=== PATIENT | female | born 1960 | race Caucasian/White ===

== ENCOUNTER 2024-06-21 20:12 | Emergency (ER) | payer MEDICARE, SELFPAY ==
--- NOTE | ~2024-06-21 | XR_ITS ---
XR hand LT 2V Ordering provider: William Min MD History: . fall, pain/ SWELLING TO HAND, NEAR 5TH METACARPAL . Comparison: None. FINDINGS: BONES: No acute fracture or dislocation. Postoperative changes for removal of the trapezium bone. Sma ll residual bony fragment is seen. JOINT SPACES: Well maintained. SOFT TISSUES: Unremarkable. IMPRESSION: No acute osseous abnormality left hand. Postoperative changes in the trapezium bone. Reviewed, dictated and finalized at location A.
[2024-06-21 20:21] VITALS: BP 151/68; PULSE 75; RESP 20; TEMP 36.6; O2SAT 95
--- OUTSIDE RECORDS SUMMARY | 2024-06-21 21:06 | XMS_ITS | Encounter Summary ---
Author Organization Formerly [facility] and Care Address [address] [place] [address] Care Team Providers Care Drum Straightener Name Role Phone Pcp, Unknown Primary Care Provider Unavailabl e Encounter Details Date Type Department Care Team (Late st Contact Info) Description 03/07/2018 Duly Conversion Encounter [facility] CONVERSTION DEPT Social History Tobacco Use Types Packs/Day Years Used Date Smoking Tobacco: Never Assessed Sex and Gender Information Value Date Recorded Sex Assigned at Female 08/10/2021 9:16 PM CDT Gender Identity Female 08/10/2021 9:16 PM CDT Sexual Orientation Straight 08/10/2021 9: 16 PM CDT documented as of this encounter Last Filed Vital Signs Vital Sign Reading Time Taken Comments Blood Pressure 120/70 03/07/2018 1:48 PM RECORD CENTER COORDINATOR Pulse 60 03/07/2018 1:48 PM RECORD CENTER COORDINATOR Temperature 36.6 C (97.9 F) 03/07/2018 1:48 PM RECORD CENTER COORDINATOR Respiratory Rate 16 03/07/2018 1:48 PM RECORD CENTER COORDINATOR Oxygen Saturation - - Inhaled Oxygen Concentration - - Weight 72.6 kg (160 lb) 03/07/2018 1:48 PM RECORD CENTER COORDINATOR Height 154.9 cm (5' 1 ) 03/07/2018 1:48 PM RECORD CENTER COORDINATOR Body Mass Index 30.23 03/07/2018 1:48 PM RECORD CENTER COORDINATOR documented in this encounter Plan of Treatment Not on file documented as of this encounter Visit Diagnoses Not on filedocumented in this encounter Additional Health Concerns Infection Onset Date Last Indicated Resolved Time R/O COVID19 04/25/2021 04/26/2021 04/27/2021 2:24 AM RECORD CENTER COORDINATOR R/O COVID19 05/16/2021 05/17/2021 05/18/2021 2:24 AM RECORD CENTER COORDINATOR documented as of this encounter Care Teams Drum Straightener Relationship Specialty Start Date End Date Pcp, Unknown PCP - General 05/19/21 documented as of this encounter
--- OUTSIDE RECORDS SUMMARY | 2024-06-21 21:06 | XMS_ITS | Encounter Summary ---
Author Organization Replaced By [facility] and Care Address [address] [place] [address] Care Team Providers Care Water Plant Maintenance Mechanic Name Role Phone Pcp, Unknown Primary Care Provider Unavailabl e Encounter Details Date Type Department Care Team (Late st Contact Info) Description 06/20/2018 Duly Conversion Encounter D[facility]Y CONVERSTION DEPT Social History Tobacco Use Types Packs/Day Years Used Date Smoking Tobacco: Never Assessed Sex and Gender Information Value Date Recorded Sex Assigned at Female 08/10/2021 9:16 PM CDT Gender Identity Female 08/10/2021 9:16 PM CDT Sexual Orientation Straight 08/10/2021 9: 16 PM CDT documented as of this encounter Progress Notes * Nandini Shaffer MD - 06/20/2018 12:25 PM CDT Note Type: Physician progress note Patient: LOREN RASHID Date: Jun 20, 2018 : 1960 Age: 58 Primary Care Physician: Dr. Thomason Consulting Physician: Dr. Yousif Chief Complaint: Left breast DCIS, diagnosed January 2018, status post biopsy. HPI: This is a very pleasant post-menopausal female who was evaluated by Dr. Thomason on a routine visit and had a mammogram done which was noted to have microcalcifications in the left breast in thecentral portion. She underwent a biopsy of it on 01/17/2018 which was positive for DCIS, ER/IL positive. The patient underwent a lumpectomy on 02/19/18. There was no evidence of any residual disease. Patient is doing quite well. She denies any significant complaints. She returns here today in followup. She finished 4-1/2 weeks of radiation on 04/23/2018. Her breast is healed from radiation therapy but feels firmer. She had started Anastrazole but developed swelling in her legs. She reports her leg swelling did not go down overnight. She stands for her job and her feet and legs always hurt anyway but she noted swelling and her legs bothered her more. She was told to stop the Anastrazole and see us but she was worried so didn't stop until just this past Sunday. She does report her legs feel better. She is also concerned about weight gain. She was told by not to have a mammogram until September,, even though we had ordered one. Current Medications: Letrozole 1 (2.5 mg) Tablet Oral daily, Tamoxifen Citrate 0.5 (10 mg) Tablet Oral daily for 30 days, Albuterol Sulfate (108 (90 base) mcg/act) Aerosol Powder, Breath Activated Inhalation daily, Levothyroxine Sodium 1 (50 mcg) Tablet Oral daily, Singulair 1 (10 mg) Tablet Oral daily Vital Signs: Performed on Jun 20, 2018 11:46: Height - 61. in, Weight - 163 lbs (HIGH), BSA - 1.73 sq.m, BMI - 30.8 (HIGH), Temperature - 98.3 F (LOW), Pulse - 76 /min, Respiration - 18 /min, BP - 122/80 mm(hg), Pain - 4, Fatigue - 6, and Fall Risk - no. Review of Systems: Constitutional Normal - No fevers, chills, night sweats, feels tired, HEENT Normal - No symptoms, Hematologic/Lymphatic Normal - No easy bruising or bleeding. No enlarged lymph nodes, Respiratory Normal - No GUERRERO, SOB, cough or hemoptysis, Cardiovascular Normal - No chest pain, orthopnea or PND, Gastrointestinal Normal - No nausea, vomiting, diarrhea or constipation. No melena or BRBPR. No hematemesis, Genitourinary (F) Normal - No hematuria, hesitancy, incontinence, vaginal bleeding, discharge or other problems with urination. Normal sexual function, Musculoskeletal Normal - No joint pain or swelling. No muscle aches, Integumentary (w/breast) Normal - firmness to breast, skin healed, Neurologic Normal - No tingling or numbness. No focal weakness, Psychiatric Normal - Noinsomnia. Physical Exam: General Normal - Alert and oriented, HEENT Normal - Normocephalic, pink conjunctivae, anicteric sclerae, Neck Normal - No adenopathy, Hematologic/Lymphatic/Skin Normal - No petechiae, purpura or rash, Respiratory Normal - Lungs are clear to auscultation without rhonchi or wheezing, Cardiovascular Normal - Regular rate and rhythm of heart without murmurs or rubs, Abdomen Normal - Nohepatosplenomegaly. Non-distended. Non- tender, Musculoskeletal Normal - No tenderness or swelling, normal range of motion without obvious weakness, Extremities Normal - No visible deformities, no cyanosis, clubbing or edema. Pulses 4+ and equal bilaterally, Neurologic Normal - No sensory or motor deficits. Normal cranial nerves. Performance status: 1 - No physically strenuous activity, but ambulatory and able to carry out light or sedentary work (e.g. office work, light house work). (ECOG) Labs: Test performed on Jun 20, 2018 11:40: WBC - 6.9, RBC - 4.90, HCT - 45.1, Hgb - 14.3, MCH - 29.2, MCHC - 31.7, MCV - 92.1, RDW - 14.3, Platelet Count - 334, Grans - 4.9, Lymph - 1.6, Mid - 0.4, Grans % - 70.6, Lymph % - 23.2, and Mid % - 6.2. 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 Plan: 1. DCIS of the left breast, status post lumpectomy. I discussed the pathology findings with the patient. The patient understood that there was no evidence of residual disease, margins are clean. Her prognosis is excellent. We discussed about other options available to her. She completed radiation today, 04/23/2018. We will plan on repeating a left mammogram in about 3 months and if normal will then return to yearly mammograms. 2. Patient was started on Arimidex however she is having significant musculoskeletal issues especially in the legs after standing for many hours. Patient is unable to tolerate it. We discussed about options available to her. One option would be to try Letrozole however the side effect profile is pretty much similar to Arimidex. I also discussed with her about the SALINAS-01 trial using reduced dose of tamoxifen for patient with DCIS. I think that it is very reasonable to consider it. Patient likes this idea better. She is willing to try the tamoxifen at 5 mg daily. We also discussed that there was an alternative dosing schedule of 10 mg every other day. But she prefers to take it every day. I discussed this with her. A copy of the SALINAS-01 trial was given to her. Patient will try it. She will hold off taking any medication for one week and will start taking tamoxifen 5 mg daily and then see me back in 5 weeks for reevaluation. If she is however unable to tolerate very low doses of tamoxifenwe may consider not treating her. She understood that her overall prognosis is excellent and her ris k of recurrence is quite low. Tamoxifen or an AI decreases the risk of recurrence and more so it also prevents new breast cancer in the ipsilateral breast. Her risk of recurrence is pretty low. If she is unable to tolerate tamoxifen because of the profile toxicity she will still have a very good res ponse. 3. Weight gain. The patient was also a little frustrated about it. She thinks that this is secondary to an AI. I have recommended diet control and exercise she is following that. She is to otherwise see me back in 5 weeks. NDB/at documented in this encounter Plan of Treatment Not on file documented as of this encounter Procedures Procedure Name Priority Date/Time Associated Diagnosis Comments CBC W AUTO DIFF Routine 06/20/2018 11:40 AM CDT documented in this encounter Results * CBC W AUTO DIFF (06/20/2018 11:40 AM CDT) WBC 6.9 4.1 - 10.9 K/uL 06/20/2018 11:40 AM CDT [facility] RBC 4.90 4.20 - 5.40 M/uL 06/20/2018 11:40 AM CDT [facility] Hematocrit 45.1 37.0 - 47.0 % 06/20/2018 11:40 AM CDT [facility] HGB 14.3 12.0 - 16.0 g/dL 06/20/2018 11:40 AM CDT [facility] MCH 29.2 26.0 - 32.0 pg 06/20/2018 11:40 AM CDT [facility] MCHC 31.7 31.0 - 36.0 g/dL 06/20/2018 11:40 AM CDT [facility] MCV 92.1 80.0 - 97.0 fl 06/20/2018 11:40 AM CDT [facility] RED CELL DISTRIBUTION WIDTH 14.3 11.5 - 14.5 % 06/20/2018 11:40 AM CDT [facility] PLATELET COUNT 334 140 - 440 K/uL 06/20/2018 11:40 AM CDT [facility] GRANULOCYTES 4.9 2.0 - 7.8 K/uL 06/20/2018 11:40 AM CDT [facility] LYMPHOCYTES 1.6 0.6 - 4.1 K/uL 06/20/2018 11:40 AM CDT [facility] MIXED CELL ABSOLUTE 0.4 0.0 - 1.8 K/uL 06/20/2018 11:40 AM CDT [facility] NEUTROPHIL % 70.6 37.0 - 92.0 % 06/20/2018 11:40 AM CDT [facility] LYMPHOCYTE % 23.2 10.0 - 58.5 % 06/20/2018 11:40 AM CDT [facility] MIXED CELL % 6.2 0.1 - 24.0 % 06/20/2018 11:40 AM CDT [facility] 06/20/2018 11:4 0 AM CDT Narrative [facility] - 06/20/2018 11:49 AM CDT Testing performed at [facility]- [address] [place] [address] CLIA # [id number] Read-only results ordered via the LCM/eLCM - see chart for additional updates or notes Nandini Shaffer MD LAB BLOOD ORDERABLES [facility] [address] [place] [address] documented in this encounter Visit Diagnoses Not on filedocumented in this encounter Additional Health Concerns Infection Onset Date Last Indicated Resolved Time R/O COVID19 04/25/2021 04/26/2021 04/27/2021 2:24 AM FARM CREW MEMBER R/O COVID19 05/16/2021 05/17/2021 05/18/2021 2:24 AM FARM CREW MEMBER documented as of this encounter Care Teams Water Plant Maintenance Mechanic Relationship Specialty Start Date End Date Pcp, Unknown PCP - General 05/19/21 documented as of this encounter
--- OUTSIDE RECORDS SUMMARY | 2024-06-21 21:06 | XMS_ITS | Encounter Summary ---
Author Organization Formerly [facility] and Care Address [address] [place] [address] Care Team Providers Care Pharmaceutical Process Engineer Name Role Phone Pcp, Unknown Primary Care Provider Unavailabl e Encounter Details Date Type Department Care Team (Late st Contact Info) Description 09/04/2019 Duly Conversion Encounter [facility] CONVERSTION DEPT Social [...] Sign Reading Time Taken Comments Blood Pressure 120/73 09/04/2019 9:19 AM CDT Pulse 58 09/04/2019 9:19 AM CDT Temperature 36.4 C (97.6 F) 09/04/2019 9:19 AM CDT Respiratory Rate - - Oxygen Saturation 97% 09/04/2019 9:19 AM CDT Inhaled Oxygen Concentration - - Weight 66.3 kg (146 lb 3.2 oz) 09/04/2019 9:19 A M CDT Height - - Body Mass Index 27.62 08/07/2019 11:05 AM CDT documented in this encounter Plan of Treatment Not on file documented as of this encounter Visit Diagnoses Not on filedocumented in this encounter Additional Health Concerns Infection Onset Date Last Indicated Resolved Time R/O COVID19 04/25/2021 04/26/2021 04/27/2021 2:24 AM COMBINATION WORKER R/O COVID19 05/16/2021 05/17/2021 05/18/2021 2:24 AM COMBINATION WORKER documented as of this encounter Care Teams Pharmaceutical Process Engineer Relationship Specialty Start Date End Date Pcp, Unknown PCP - General 05/19/21 documented as of this encounter
--- OUTSIDE RECORDS SUMMARY | 2024-06-21 21:06 | XMS_ITS | Clinical Summary ---
Author Organization [facility] Address [address] [place] [address] Care Team Providers Care Branner Machine Tender Name Role Phone Unavailable Primary Care Provider Unavailabl e Source Comments You are receiving this document as you are listed as the PCP, follow-upprovider, or the patient hasbeen referred to you for consultation. This is incompliance with [facility] Transitions of Care Requirement. Note: Specific treatmentrecords and notes about services for mental health, developmental disabilities,alcoholism, drug dependence, or substance abuse, you will need to contact theMedical Records Department at [phone] and complete a separate Release ofAuthorization form. They are also available to answer other questions.[facility] Social History Tobacco Use Types Packs/Day Years Used Date Smoking Tobacco: Never Assessed Sex and Gender Information Value Date Recorded Sex Assigned at Not on file Gender Identity Not on file Sexual Orientation Not on file Plan of Treatment Health Maintenance Due Date Last Done Comments ANNUAL DEPRESSION SCREENING,ADULT 1960 ANNUAL BMI COUNSELING 1960 HIV SCREEN 1973 ADULT VACCINE: TETANUS( TD) BOOSTER,EVERY 10 YR 1977 CHOL SCREENING: EVERY 5 YEARS 1978 CA SCREENING: MAMMOGRAM, ANNUAL 1998 CA SCREENING: COLONOSCOPY,EV ELEAZAR 10 YEARS,ROUTINE 02/19/2008 ADULT VACCINE: SHINGRIX (1 of 2) 2008 PNEUMOCOCCAL VACCINE: 65+ YE ARS (1 of 1 - PCV) 2008 ANNUAL FALL RISK ASSESSMENT 2023 OSTEOPOROSIS SCREENING: BONE DENSITOMETRY 2023 Covid-19 Vaccine ( - 2023-2 5 season) 2023 INFLUENZA VACCINE (#1) 2023 ADULT RSV > 60 YRS & PREGNAN T PATIENTS (1 - 1-dose 75+ series) 2033 PEDS RSV < 20 MON Aged Out No longer eligible based on patient's age to complete this topic
--- OUTSIDE RECORDS SUMMARY | 2024-06-21 21:06 | XMS_ITS | Encounter Summary ---
Author Organization [facility] and Care Address [address] [place] [address] Care Team Providers Care Product Development Worker Name Role Phone Pcp, Unknown Primary Care Provider Unavailabl e Encounter Details Date Type Department Care Team (Late st Contact Info) Description 04/15/2018 Duly Conversion Encounter [facility] CONVERSTION DEPT Social [...] Sign Reading Time Taken Comments Blood Pressure 141/73 04/15/2018 8:17 AM MOBILE UI DESIGNER Pulse 64 04/15/2018 8:17 AM MOBILE UI DESIGNER Temperature 35.9 C (96.7 F) 04/15/2018 8:17 AM MOBILE UI DESIGNER Respiratory Rate 16 04/15/2018 8:17 AM MOBILE UI DESIGNER Oxygen Saturation 95% 04/15/2018 8:17 AM MOBILE UI DESIGNER Inhaled Oxygen Concentration - - Weight 70.7 kg (155 lb 12.8 oz) 04/15/2018 8:17 AM MOBILE UI DESIGNER Height 160 cm (5' 3 ) 04/15/2018 8:17 AM MOBILE UI DESIGNER Body Mass Index 27.6 04/15/2018 8:17 AM MOBILE UI DESIGNER documented in this encounter Plan of Treatment Not on file documented as of this encounter Visit Diagnoses Not on filedocumented in this encounter Additional Health Concerns Infection Onset Date Last Indicated Resolved Time R/O COVID19 04/25/2021 04/26/2021 04/27/2021 2:24 AM MOBILE UI DESIGNER R/O COVID19 05/16/2021 05/17/2021 05/18/2021 2:24 AM MOBILE UI DESIGNER documented as of this encounter Care Teams Product Development Worker Relationship Specialty Start Date End Date Pcp, Unknown PCP - General 05/19/21 documented as of this encounter
--- OUTSIDE RECORDS SUMMARY | 2024-06-21 21:06 | XMS_ITS | Encounter Summary ---
Author Organization [facility] and Care Address [address] [place] [address] Care Team Providers Care Iron Launder Operator Name Role Phone Pcp, Unknown Primary Care Provider Unavailabl e Encounter Details Date Type Department Care Team (Late st Contact Info) Description 09/01/2020 Duly Conversion Encounter D[facility]Y CONVERSTION DEPT Social [...] Sign Reading Time Taken Comments Blood Pressure 123/69 09/01/2020 8:33 AM CDT Pulse 67 09/01/2020 8:33 AM CDT Temperature 35.9 C (96.7 F) 09/01/2020 8:33 AM CDT Respiratory Rate - - Oxygen Saturation 97% 09/01/2020 8:33 AM CDT Inhaled Oxygen Concentration - - Weight 71.6 kg (157 lb 12.8 oz) 09/01/2020 8:33 AM CDT Height - - Body Mass Index 29.82 05/25/2020 11:34 AM CDT documented in this encounter Plan of Treatment Not on file documented as of this encounter Visit Diagnoses Not on filedocumented in this encounter Additional Health Concerns Infection Onset Date Last Indicated Resolved Time R/O COVID19 04/25/2021 04/26/2021 04/27/2021 2:24 AM ACCOUNTING PROFESSIONAL R/O COVID19 05/16/2021 05/17/2021 05/18/2021 2:24 AM ACCOUNTING PROFESSIONAL documented as of this encounter Care Teams Iron Launder Operator Relationship Specialty Start Date End Date Pcp, Unknown PCP - General 05/19/21 documented as of this encounter
--- OUTSIDE RECORDS SUMMARY | 2024-06-21 21:06 | XMS_ITS | Encounter Summary ---
Author Organization [facility] and Care Address [address] [place] [address] Care Team Providers Care Drop Forger Name Role Phone Pcp, Unknown Primary Care Provider Unavailabl e Encounter Details Date Type Department Care Team (Late st Contact Info) Description 05/25/2020 Duly Conversion Encounter D[facility]Y CONVERSTION DEPT Social [...] Sign Reading Time Taken Comments Blood Pressure 145/76 05/25/2020 11:34 AM CDT Pulse 56 05/25/2020 11:34 AM CDT Temperature 36.6 C (97.9 F) 05/25/2020 11:34 AM CDT Respiratory Rate 16 05/25/2020 11:34 AM CDT Oxygen Saturation - - Inhaled Oxygen Concentration - - Weight 70.9 kg (156 lb 3.2 oz) 05/25/2020 11:34 AM CDT Height 154.9 cm (5' 1 ) 05/25/2020 11:34 AM CDT Body Mass Index 29.51 05/25/2020 11:34 AM CDT documented in this encounter Plan of Treatment Not on file documented as of this encounter Visit Diagnoses Not on filedocumented in this encounter Additional Health Concerns Infection Onset Date Last Indicated Resolved Time R/O COVID19 04/25/2021 04/26/202104/2704/27/2021 2:24 AM PROCESSING ASSOCIATE R/O COVID19 05/16/2021 05/17/2021 05/18/2021 2:24 AM PROCESSING ASSOCIATE documented as of this encounter Care Teams Drop Forger Relationship Specialty Start Date End Date Pcp, Unknown PCP - General 05/19/21 documented as of this encounter
--- OUTSIDE RECORDS SUMMARY | 2024-06-21 21:06 | XMS_ITS | Encounter Summary ---
Author Organization [facility] Address [address] [place] [address] Care Team Providers Care Nutritionists Name Role Phone Pcp, Unknown Primary Care [...] Progress Notes * Nandini Shaffer MD - 05/25/2020 12:10 PM CDT Note Type: Physician progress note Patient: LOREN RASHID Date: May 25, 2020 : 1960 Age: 60 Chief Complaint: Left breast DCIS, diagnosed January 2018, status post biopsy. Primary Care Physician: Dr. Thomason Consulting Physician: Dr. Yousif HPI: This is a very pleasant post-menopausal female who was evaluated by Dr. Thomason on a routine visit and had a mammogram done which was noted to have microcalcifications in the left breast in thecentral portion. She underwent a biopsy of it on 01/17/2018 which was positive for DCIS, ER/ID positive. The patient underwent a lumpectomy on 02/19/18. There was no evidence of any residual disease. Patient is doing quite well. She denies any significant complaints. She finished 4-1/2 weeks of radiation on 04/23/2018. She was started on Anastrozole but was unable to tolerate due to swelling in her lower extremities. She was changed to Tamoxifen 10mg every 48 hours at her last visit on June 20, 2018. The patient now comes in for follow-up visit. Patient comes in today for follow up visit. Overall she is doing well. Her hot flashes are improvedby decreasing dose of tamoxifen. She now takes 20 mg every other day. She denies any pain in the breast. There is no swelling. She had a mammogram 04/2020 i reviewed it with her. Patient recieved her first dose of covid vaccine. She had no side effects from it. Past Medical History: Ms. RASHID's medical history consists of COPD and Hypothyroidism in 2017. Past Surgical History: Ms. Segal surgical/procedural history consists of Lumpectomy in 2017 - left breast, Appendectomy in 1985, and right oopherectomy in 1985. 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 Ms. RASHID quit smoking 3 years ago but had smoked 1.0 pack/day for 35 years. She has no history of drinking. Ms. RASHID reports no contact with hazardous material. She has indicated exposure to the following products: cigarettes. Ms. RASHID reports the following support systems: lives with spouse, significant other, family, or friends, lives in own house, and supportive family/friends willing to assist with needs. Her diet consists of regular meals. She indicates her activity level as: daily activities. Family History: Ms. HEBERTs mother is : heart complications. Ms. RASHID's father is : Renal failure. Ms. RASHID's maternal grandmother is . Her maternal grandfather is . Her paternal grandmother is . Her paternal grandfather is . Ms. RASHID has 1 brother who is alive. She has 2 sisters: 2 alive. She has 3 sons: 3 alive. She has 1 daughter who is alive. no family hx of malignancy. Allergies: No Known Allergies. Current Medications: Albuterol Sulfate (108 (90 base) mcg/act) Aerosol Powder, Breath Activated Inhalation daily, Levothyroxine Sodium 1 (75 mcg) Tablet Oral daily, Meloxicam Tablet Oral, Singulair 1(10 mg) Tablet Oral daily, Tamoxifen Citrate 1 (20 mg) Tablet Oral q 48 hours, Vitamin D Capsule Oral, Xanax 1 (.5 mg) Tablet Oral daily Vital Signs: Performed on May 25, 2020 11:34: Height - 61. in, Weight - 156.2 lbs (HIGH), BSA - 1.7sq.m, BMI - 29.51, Temperature - 97.9 F (LOW), Pulse - 56 /min (LOW), Respiration - 16 /min, BP - 145/76 mm(hg) (HIGH), Pain - 3, Fatigue - 4, and Fall Risk - no. Review of Systems: Constitutional Normal - hot flashes stable no fatigue appetite good, HEENT Normal - No symptoms, Hematologic/Lymphatic Normal - No easy bruising or bleeding. No enlarged lymph nodes, Respiratory Normal - No GUERRERO, SOB, cough or hemoptysis, Cardiovascular Normal - No chest pain, orthopnea or PND, Gastrointestinal Normal - No nausea, vomiting, diarrhea, or constipation. No melena or BRBPR. No hematemesis, Genitourinary (F) Normal - No hematuria, hesitancy, incontinence, vaginal bleeding, discharge or other problems with urination, Musculoskeletal Normal - No joint pain or swelling. No muscle aches, Integumentary (w/breast) Normal - No skin rash or discoloration, Neurologic Nor mal - No tingling or numbness. No focal weakness, Psychiatric Normal - No insomnia. Physical Exam: General Normal - Alert and oriented. hot flashes, HEENT Normal - Normocephalic, pinkconjunctivae, anicteric sclerae, Neck Normal - No adenopathy, Hematologic/Lymphatic/Skin Normal - No petechiae, purpura or rash, Respiratory Normal - Lungs are clear to auscultation without rhonchi or wheezing, Cardiovascular Normal - Regular rate and rhythm of heart without murmurs or rubs, Breasts Abnormal - no tenderness swelling or mass, Abdomen Normal - No hepatosplenomegaly. Non-distended. Non-tender, Musculoskeletal Normal - No weakness or tenderness, Extremities Normal - No cyanosis, clubbing or edema, Neurologic Normal - No sensory or motor deficits. Normal cranial nerves. Performance status: 0 - Fully active, able to carry on all predisease activities without restrictions. (ECOG) Labs: Test performed on May 25, 2020 11:15: Albumin - 4.3, Alkaline Phosphatase - 74, Bilirubin, Total - 0.3, BUN - 16, Calcium - 9.8, Creatinine - 0.80, Cr Clearance (Est) - 81.55, Glucose - 81.0, AST (SGOT) - 14, ALT (SGPT) - 11, Protein, Total - 7.0, Sodium - 137, Potassium - 4.6, Chloride - 102, CO2 - 29.6, WBC - 8.0, RBC - 4.71, HCT - 42.9, Hgb - 13.8, MCH - 29.3, MCHC - 32.2, MCV - 91.1, RDW - 13.7, Platelet Count - 278, Grans - 5.7, Lymph - 1.9, Mid - 0.4, Grans % - 70.7, Lymph % - 24.2,and Mid % - 5.1. 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 and RT 04/2018 and low dose tamoxifen covid vaccine 05/2020 Plan: DCIS of the left breast status lumpectomy. She received radiation, completed in April of 2018. Has been on low dose tamoxifen, will continue the same. She does not require any prescriptions .left mammogram in 10/2020 Screening colonoscopy was also discussed. Patient is agreeable to it. She wishes to follow up with Dr. Rowan for it. I have made the referral. She is going to call their office. Patient to see me back in 6 months. documented in this encounter Plan of Treatment Not on file documented as of this encounter Procedures Procedure Name Priority Date/Time Associated Diagnosis Comments CBC W AUTO DIFF Routine 05/25/2020 11:15 AM CDT COMPREHENSIVE METABOLIC PANEL Routine 05/25/2020 11:15 AM CDT documented in this encounter Results * CBC W AUTO DIFF (05/25/2020 11:15 AM CDT) WBC 8.0 4.1 - 10.9 K/uL 05/25/2020 11:15 AM CDT [facility] RBC 4.71 4.20 - 5.40 M/uL 05/25/2020 11:15 AM CDT [facility] Hematocrit 42.9 37.0 - 47.0 % 05/25/2020 11:15 AM CDT [facility] HGB 13.8 12.0 - 16.0 g/dL 05/25/2020 11:15 AM CDT [facility] MCH 29.3 26.0 - 32.0 pg 05/25/2020 11:15 AM CDT [facility] MCHC 32.2 31.0 - 36.0 g/dL 05/25/2020 11:15 AM CDT [facility] MCV 91.1 80.0 - 97.0 fl 05/25/2020 11:15 AM CDT [facility] RED CELL DISTRIBUTION WIDTH 13.7 11.5 - 14.5 % 05/25/2020 11:15 AM CDT [facility] PLATELET COUNT 278 140 - 440 K/uL 05/25/2020 11:15 AM CDT [facility] GRANULOCYTES 5.7 2.0 - 7.8 K/uL 05/25/2020 11:15 AM CDT [facility] LYMPHOCYTES 1.9 0.6 - 4.1 K/uL 05/25/2020 11:15 AM CDT [facility] MIXED CELL ABSOLUTE 0.4 0.0 - 1.8 K/uL 05/25/2020 11:15 AM CDT [facility] NEUTROPHIL % 70.7 37.0 - 92.0 % 05/25/2020 11:15 AM CDT [facility] LYMPHOCYTE % 24.2 10.0 - 58.5 % 05/25/2020 11:15 AM CDT [facility] MIXED CELL % 5.1 0.1 - 24.0 % 05/25/2020 11:15 AM CDT [facility] 05/25/2020 11:1 5 AM CDT Narrative [facility] - 05/25/2020 11:30 AM CDT Testing performed at [place] [id number] [address] # [id number] Repeated Read-only results ordered via the LCM/eLCM - see chart for additional updates or notes Nandini Shaffer MD LAB BLOOD ORDERABLES [facility] [address] [place] [address], [facility] * COMP METABOLIC PANEL (14) (05/25/2020 11:15 AM CDT) ALBUMIN, SERUM 4.3 3.5 - 5.7 g/dL 05/25/2020 11:15 AM CDT [facility] ALKALINE PHOSPHATASE 74 34 - 104 U/L 05/25/2020 11:15 AM CDT [facility] Total Bilirubin 0.3 0.3 - 1.0 mg/dL 05/25/2020 11:15 AM CDT [facility] BUN 16 7 - 25 mg/dL 05/25/2020 11:15 AM CDT [facility] CALCIUM 9.8 8.6 - 10.3 mg/dL 05/25/2020 11:15 AM CDT [facility] CREATININE 0.80 0.60 - 1.30 mg/dL 05/25/2020 11:15 AM CDT [facility] Creatinine Clearance (Est) 81.55 75.0000 - 115.0000 mL/min 05/25/2020 11:15 AM CDT [facility] GLUCOSE, RANDOM (P) 81.0 70.0 - 105.0 mg/dL 05/25/2020 11:15 AM CDT [facility] AST 14 13 - 39 U/L 05/25/2020 11:15 AM CDT [facility] ALT 11 7 - 52 U/L 05/25/2020 11:15 AM CDT [facility] TOTAL PROTEIN 7.0 6.4 - 8.9 g/dL 05/25/2020 11:15 AM CDT [facility] SODIUM 137 136 - 145 mEq/L 05/25/2020 11:15 AM CDT [facility] POTASSIUM, SERUM 4.6 3.5 - 5.1 mEq/L 05/25/2020 11:15 AM CDT [facility] CHLORIDE 102 98 - 107 mEq/L 05/25/2020 11:15 AM CDT [facility] CO2 29.6 21.0 - 31.0 mEq/L 05/25/2020 11:15 AM CDT [facility] 05/25/2020 11:1 5 AM CDT Narrative [facility] - 05/25/2020 11:54 AM CDT Testing performed at [address] # [id number] Read-only results ordered via the LCM/eLCM - see chart for additional updates or notes Nandini Shaffer MD LAB BLOOD ORDERABLES Performing Organization Address City/State/[facility] Co de Phone Number [facility] [address] [place] [address] documented in this encounter Visit Diagnoses Not on filedocumented in this encounter Additional Health Concerns Infection Onset Date Last Indicated Resolved Time R/O COVID19 04/25/2021 04/26/2021 04/27/2021 2:24 AM SU[employer]OR [employer] R/O COVID19 05/16/2021 05/17/2021 05/18/2021 2:24 AM [employer] documented as of this encounter Care Teams Nutritionists Relationship Specialty Start Date End Date Pcp, Unknown PCP - General 05/19/21 documented as of this encounter
--- OUTSIDE RECORDS SUMMARY | 2024-06-21 21:06 | XMS_ITS | Encounter Summary ---
Author Organization [facility] Address [address] [place] [address] Care Team Providers Care Tissue Recovery Technician Name Role Phone Pcp, Unknown Primary Care Provider Unavailabl e Encounter Details Date Type Department Care Team (Late st Contact Info) Description 04/09/2018 [facility] Conversion Encounter [facility] CONVERSTION DEPT Social [...] Sign Reading Time Taken Comments Blood Pressure 130/90 04/09/2018 8:24 AM MORTGAGE BRANCH MANAGER Pulse 64 04/09/2018 8:24 AM MORTGAGE BRANCH MANAGER Temperature - - Respiratory Rate - - Oxygen Saturation 96% 04/09/2018 8:24 AM MORTGAGE BRANCH MANAGER Inhaled Oxygen Concentration - - Weight 70.6 kg (155 lb 9.6 oz) 04/09/2018 8:24 A M MORTGAGE BRANCH MANAGER Height - - Body Mass Index 29.4 04/01/2018 8:18 AM MORTGAGE BRANCH MANAGER documented in this encounter Plan of Treatment Not on file documented as of this encounter Visit Diagnoses Not on filedocumented in this encounter Additional Health Concerns Infection Onset Date Last Indicated Resolved Time R/O COVID19 04/25/2021 04/26/2021 04/27/2021 2:24 AM MORTGAGE BRANCH MANAGER R/O COVID19 05/16/2021 05/17/2021 05/18/2021 2:24 AM MORTGAGE BRANCH MANAGER documented as of this encounter Care Teams Tissue Recovery Technician Relationship Specialty Start Date End Date Pcp, Unknown PCP - General 05/19/21 documented as of this encounter
--- OUTSIDE RECORDS SUMMARY | 2024-06-21 21:06 | XMS_ITS | Encounter Summary ---
Author Organization [facility] and Care Address [address] [place] [address] Care Team Providers Care Stripping Shovel Oiler Name Role Phone Pcp, Unknown Primary Care Provider Unavailabl e Encounter Details Date Type Department Care Team (Late st Contact Info) Description 08/07/2019 [facility] Conversion Encounter [facility] CONVERSTION DEPT Social [...] Sign Reading Time Taken Comments Blood Pressure 121/59 08/07/2019 11:05 AM CDT Pulse 61 08/07/2019 11:05 AM CDT Temperature 36.6 C (97.9 F) 08/07/2019 11:05 AM CDT Respiratory Rate 16 08/07/2019 11:05 AM CDT Oxygen Saturation - - Inhaled Oxygen Concentration - - Weight 67.1 kg (148 lb) 08/07/2019 11:05 AM CDT Height 154.9 cm (5' 1 ) 08/07/2019 11:05 AM CDT Body Mass Index 27.96 08/07/2019 11:05 AM CDT documented in this encounter Plan of Treatment Not on file documented as of this encounter Visit Diagnoses Not on filedocumented in this encounter Additional Health Concerns Infection Onset Date Last Indicated Resolved Time R/O COVID19 04/25/2021 04/26/2021 04/27/2021 2:24 AM MANAGER PATHOLOGY R/O COVID19 05/16/2021 05/17/2021 05/18/2021 2:24 AM MANAGER PATHOLOGY documented as of this encounter Care Teams Stripping Shovel Oiler Relationship Specialty Start Date End Date Pcp, Unknown PCP - General 05/19/21 documented as of this encounter
--- OUTSIDE RECORDS SUMMARY | 2024-06-21 21:06 | XMS_ITS | Clinical Summary ---
Author Organization [facility] Address [address] [place] [address] Care Team Providers Care Soiled Linen Distributor Name Role Phone Unavailable Primary Care Provider Unavailabl e Social History Tobacco Use Types Packs/Day Years Used Date Smoking Tobacco: Never Assessed Inadequate Housing Answer Date Recorded Social Determinants: Housing (Overall Score Help er) 0 10/22/2018 Comments Unknown Sex and Gender Information Value Date Recorded Sex Assigned at Not on file Legal Sex Female 12:15 PM CDT Gender Identity Not on file Sexual Orientation Not on file Last Filed Vital Signs Vital Sign Reading Time Taken Comments Blood Pressure 112/70 10/28/2017 1:55 PM CDT Pulse 76 10/28/2017 1:55 PM CDT Temperature 37 C (98.6 F) 10/28/2017 1:55 PM CDT Respiratory Rate 16 10/28/2017 1:55 PM CDT Oxygen Saturation 99% 10/28/2017 1:55 PM CDT Inhaled Oxygen Concentration - - Weight 72.6 kg (160 lb) 10/28/2017 1:55 PM CDT Height 152.4 cm (5') 10/28/2017 1:55 PM CDT Body Mass Index 31.25 10/28/2017 1:55 PM CDT Plan of Treatment Health Maintenance Due Date Last Done Comments Depression Screening 1970 DTaP/Tdap/Td Vaccine (1 - Tdap) [address] Breast Cancer Screening 1998 [address] Colonography 2003 Cologuard 2003 Colonoscopy 2003 Colorectal Cancer Screening 2003 Fecal Occult Blood 2003 Sigmoidoscopy 2003 Pneumococcal Vaccine 50+ (1 of 1 - PCV) 2008 Shingles Vaccine (1 of 2) 2008 Osteoporosis Screening 2023 COVID-19 Vaccine ( - 2023-2 5 season) 2023 Influenza Vaccine (Season Ended) 2024 Respiratory Syncytial Virus (RSV) Vaccine 60+ (1 - 1-dose 75+ series) 2033 HPV Vaccine Aged Out No longer eligi ble based on patient's age to complete this topic Hepatitis A Vaccine Aged Out No longe r eligible based on patient's age to complete this topic Hepatitis B Vaccine (For Physician/APC Discussion) Aged Out No longer elig ible based on patient's age to complete this topic Meningococcal Serogroup B Vaccine Aged Out No longer eligible based on patient's age to complete this topic Meningococcal Vaccine Aged Out No mat veronica eligible based on patient's age to complete this topic
--- OUTSIDE RECORDS SUMMARY | 2024-06-21 21:06 | XMS_ITS | Encounter Summary ---
Author Organization [facility] Address [address] [place] [address] Care Team Providers Care Car Head Liner Installer Name Role Phone Pcp, Unknown Primary Care Provider Unavailabl e Encounter Details Date Type Department Care Team (Late st Contact Info) Description 08/07/2019 Duly Conversion Encounter DULY CONVERSTION DEPT Deepali Gonzalez APN Social History Tobacco Use Types Packs/Day Years Used Date Smoking Tobacco: Never Assessed Sex and Gender Information Value Date Recorded Sex Assigned at Female 08/10/2021 9:16 PM CDT Gender Identity Female 08/10/2021 9:16 PM CDT Sexual Orientation Straight 08/10/2021 9: 16 PM CDT documented as of this encounter Progress Notes * Deepali Gonzalez APN - 08/07/2019 2:53 PM CDT Patient: LOREN RASHID Date: August 07, 2019 : 1960 Physician: Kailee Boyle M.D. 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 COPD Hypothyroidism in 2018 Allergies: No Known Allergies. Chief Complaint: Left breast DCIS, diagnosed January [...] on 01/17/2018 which was positive for DCIS, ER/MO positive. The patient underwent a lumpectomy on 02/19/18. There was no evidence of any residual disease. Patient is doing quite well. She denies any significant complaints. She finished 4-1/2 weeks of radiation on 04/23/2018. She was started on Anastrazole but was unable to tolerate due to swelling in her lower extremities. She was changed to Tamoxifen 10mg every 48 hours at her last visit on June 20, 2018. The patient now comes in for follow-up visit. Overall, she is doing much better. Her hot flashes are much more controlled with lower dose of tamoxifen. Her last mammogram was almost a year ago. She denies any other new complaints. The patient does not wish to get the flu vaccination. I also discussed that she has never had a colonoscopy. She has no symptoms of abdominal pain, change in bowel habits or blood in her urine or stool. There is no family history of colon carcinoma. Current Medications: Tamoxifen Citrate 1 Tablet (of 20 mg) Oral daily for 90 days, Albuterol Sulfate (108 (90 base) mcg/act) Aerosol Powder, Breath Activated Inhalation daily, Levothyroxine Sodium 1 (50 mcg) Tablet Oral daily, Singulair 1 (10 mg) Tablet Oral daily, Tamoxifen Citrate 1 (10 mg) Tablet Oral q 48 hours Review of Systems: Constitutional No fevers, chills, night sweats, feels tired, occasional hot flashes HEENT No symptoms. Hematologic/Lymphatic No easy bruising or bleeding. No enlarged lymph nodes. Respiratory No GUERRERO, SOB, cough or hemoptysis. Cardiovascular No chest pain, orthopnea or PND. Gastrointestinal No nausea, vomiting, diarrhea or constipation. No melena or BRBPR. No hematemesis. Musculoskeletal No joint pain or swelling. No muscle aches. Integumentary (w/breast) firmness to breast, skin healed Neurologic No tingling or numbness. No focal weakness. Psychiatric No insomnia. Physical Exam: General Alert and oriented. HEENT Normocephalic, pink conjunctivae, anicteric sclerae. Neck No adenopathy. Hematologic/Lymphatic/Skin No petechiae, purpura or rash. Respiratory Lungs are clear to auscultation without rhonchi or wheezing. Cardiovascular Regular rate and rhythm of heart without murmurs or rubs. Breasts No lesions or masses palpated either breast, left breast slightly firmer and darker. Well healed scar to left breast No axillary lymphadenopathy, no nipple inversion or discharge. Abdomen No hepatosplenomegaly. Non-distended. Non-tender. Musculoskeletal No tenderness or swelling, normal range of motion without obvious weakness. Extremities No visible deformities, no cyanosis, clubbing or edema. Pulses 4+ and equal bilaterally. Neurologic No sensory or motor deficits. Normal cranial nerves. Labs: Test performed on August 07, 2019 11:02 Albumin 4.1 g/dL Alkaline Phosphatase 82 U/L Bilirubin, Total 0.3 mg/dL BUN 11 mg/dL Calcium 9.2 mg/dL Creatinine 0.79 mg/dL Cr Clearance (Est) 79.25 mL/min Glucose 99.0 mg/dL AST (SGOT) 12 U/L(LOW) ALT (SGPT) 9 U/L Protein, Total 6.4 g/dL Sodium 140 mEq/L Potassium 4.5 mEq/L Chloride 106 mEq/L CO2 28.5 mEq/L WBC 6.4 K/uL RBC 4.76 M/uL HCT 42.3 % Hgb 13.6 g/dL MCH 28.6 pg MCHC 32.2 g/dL MCV 88.9 fl RDW 16.0 %(HIGH) Platelet Count 262 K/uL Grans 4.0 K/uL Lymph 2.1 K/uL Mid 0.3 K/uL Grans % 61.9 % Lymph % 32.7 % Mid % 5.4 % Assessment and Plan: 1. DCIS of the left breast, status post lumpectomy. I discussed the pathology findings with the patient. The patient understood that there was no evidence of residual disease, margins are clean. Her prognosis is excellent. We discussed about other options available to her. She completed radiation in April 2018. She developed hot flashes that were affecting her quality if life, the pt's tamoxifen was switched to 20 mg every other day. She is tolerating that better. Since her risk of recurrence is low, I think this would be adequate. Her bilateral diagnostic mammogram in March showed within the left breast an architectural area of distortion near the post lumpectomy site, this was likely scar tissue however 6 month follow-up mammogram of the left breast was recommended, this is due in August in order has already been sent to [facility]. She will be due for her annual right breast diagnostic mammogram in late October. I've also given her this order. I have asked the patient to return in 6 months or earlier if needed. E-Signature: Deepali Gonzalez APN OPAEDIC NURSE documented in this encounter Plan of Treatment Not on file documented as of this encounter Procedures Procedure Name Priority Date/Time Associated Diagnosis Comments CBC W AUTO DIFF Routine 08/07/2019 11:02 AM CDT COMPREHENSIVE METABOLIC PANEL Routine 08/07/2019 11:02 AM CDT documented in this encounter Results * (ABNORMAL) CBC W AUTO DIFF (08/07/2019 11:02 AM CDT) WBC 6.4 4.1 - 10.9 K/uL 08/07/2019 11:02 AM CDT [facility] RBC 4.76 4.20 - 5.40 M/uL 08/07/2019 11:02 AM CDT [facility] Hematocrit 42.3 37.0 - 47.0 % 08/07/2019 11:02 AM CDT [facility] HGB 13.6 12.0 - 16.0 g/dL 08/07/2019 11:02 AM CDT [facility] MCH 28.6 26.0 - 32.0 pg 08/07/2019 11:02 AM CDT [facility] MCHC 32.2 31.0 - 36.0 g/dL 08/07/2019 11:02 AM CDT [facility] MCV 88.9 80.0 - 97.0 fl 08/07/2019 11:02 AM CDT [facility] RED CELL DISTRIBUTION WIDTH 16.0(H) 11.5 - 14.5 % 08/07/2019 11:02 AM CDT [facility] PLATELET COUNT 262 140 - 440 K/uL 08/07/2019 11:02 AM CDT [facility] GRANULOCYTES 4.0 2.0 - 7.8 K/uL 08/07/2019 11:02 AM CDT [facility] LYMPHOCYTES 2.1 0.6 - 4.1 K/uL 08/07/2019 11:02 AM CDT [facility] MIXED CELL ABSOLUTE 0.3 0.0 - 1.8 K/uL 08/07/2019 11:02 AM CDT [facility] NEUTROPHIL % 61.9 37.0 - 92.0 % 08/07/2019 11:02 AM CDT [facility] LYMPHOCYTE % 32.7 10.0 - 58.5 % 08/07/2019 11:02 AM CDT [facility] MIXED CELL % 5.4 0.1 - 24.0 % 08/07/2019 11:02 AM CDT [facility] 08/07/2019 11:0 2 AM CDT Narrative [facility] - 08/07/2019 11:06 AM CDT Testing performed at [facility]- [address] [place] [address] CLIA # [id number] Read-only results ordered via the LCM/eLCM - see chart for additional updates or notes Deepali Gonzalez CRUTCHING CONTRACTOR LAB BLOOD ORDERABLES Performing Organization Address [facility] Co de Phone Number [facility] [address] [place] [address] * (ABNORMAL) COMP METABOLIC PANEL (14) (08/07/2019 11:02 AM CDT) Pathologist [facility] ALBUMIN, SERUM 4.1 3.5 - 5.7 g/dL 08/07/2019 11:02 AM CDT [facility] ALKALINE PHOSPHATASE 82 34 - 104 U/L 08/07/2019 11:02 AM CDT [facility] Total Bilirubin 0.3 0.3 - 1.0 mg/dL 08/07/2019 11:02 AM CDT [facility] BUN 11 7 - 25 mg/dL 08/07/2019 11:02 AM CDT [facility] CALCIUM 9.2 8.6 - 10.3 mg/dL 08/07/2019 11:02 AM CDT [facility] CREATININE 0.79 0.60 - 1.30 mg/dL 08/07/2019 11:02 AM CDT [facility] Creatinine Clearance (Est) 79.25 75.0000 - 115.0000 mL/min 08/07/2019 11:02 AM CDT [facility] GLUCOSE, RANDOM (P) 99.0 70.0 - 105.0 mg/dL 08/07/2019 11:02 AM CDT [facility] AST 12(L) 13 - 39 U/L 08/07/2019 11:02 AM CDT [facility] ALT 9 7 - 52 U/L 08/07/2019 11:02 AM CDT [facility] TOTAL PROTEIN 6.4 6.4 - 8.9 g/dL 08/07/2019 11:02 AM CDT [facility] SODIUM 140 136 - 145 mEq/L 08/07/2019 11:02 AM CDT [facility] POTASSIUM, SERUM 4.5 3.5 - 5.1 mEq/L 08/07/2019 11:02 AM CDT [facility] CHLORIDE 106 98 - 107 mEq/L 08/07/2019 11:02 AM CDT [facility] CO2 28.5 21.0 - 31.0 mEq/L 08/07/2019 11:02 AM CDT [facility] 08/07/2019 11:0 2 AM CDT Narrative [facility] - 08/07/2019 12:35 PM CDT Testing performed at [facility]- [address] [place] [address] CLIA # [id number] Read-only results ordered via the LCM/eLCM - see chart for additional updates or notes Deepali Gonzalez APN LAB BLOOD ORDERABLES Performing Organization Address City/State/[facility] Co de Phone Number [facility] [address] [place] [address] documented in this encounter Visit Diagnoses Not on filedocumented in this encounter Additional Health Concerns Infection Onset Date Last Indicated Resolved Time R/O COVID19 04/25/2021 04/26/2021 04/27/2021 2:24 AM ORTHOPAEDIC NURSE R/O COVID19 05/16/2021 05/17/2021 05/18/2021 2:24 AM ORTHOPAEDIC NURSE documented as of this encounter Care Teams Car Head Liner Installer Relationship Specialty Start Date End Date Pcp, Unknown PCP - General 05/19/21 documented as of this encounter
--- OUTSIDE RECORDS SUMMARY | 2024-06-21 21:06 | XMS_ITS | Encounter Summary ---
Author Organization [facility] Address [address] [place] [address] Care Team Providers Care Life Skills Coordinator Name Role Phone Pcp, Unknown Primary Care Provider Unavailabl e Encounter Details Date Type Department Care Team (Late st Contact Info) Description 04/23/2018 Duly Conversion Encounter [facility] CONVERSTION DEPT Social [...] Sign Reading Time Taken Comments Blood Pressure 138/79 04/23/2018 2:32 PM BOOM CAT OPERATOR Pulse 66 04/23/2018 2:32 PM BOOM CAT OPERATOR Temperature 36.5 C (97.7 F) 04/23/2018 2:32 PM BOOM CAT OPERATOR Respiratory Rate 18 04/23/2018 2:32 PM BOOM CAT OPERATOR Oxygen Saturation - - Inhaled Oxygen Concentration - - Weight 71.2 kg (157 lb) 04/23/2018 2:32 PM BOOM CAT OPERATOR Height 154.9 cm (5' 1 ) 04/23/2018 2:32 PM BOOM CAT OPERATOR Body Mass Index 29.66 04/23/2018 2:32 PM BOOM CAT OPERATOR documented in this encounter Plan of Treatment Not on file documented as of this encounter Visit Diagnoses Not on filedocumented in this encounter Additional Health Concerns Infection Onset Date Last Indicated Resolved Time R/O COVID19 04/25/2021 04/26/2021 04/27/2021 2:24 AM BOOM CAT OPERATOR R/O COVID19 05/16/2021 05/17/2021 05/18/2021 2:24 AM BOOM CAT OPERATOR documented as of this encounter Care Teams Life Skills Coordinator Relationship Specialty Start Date End Date Pcp, Unknown PCP - General 05/19/21 documented as of this encounter
--- OUTSIDE RECORDS SUMMARY | 2024-06-21 21:06 | XMS_ITS | Encounter Summary ---
Author Organization [facility] Address [address] [place] [address] Care Team Providers Care Measurer Machine Name Role Phone Pcp, Unknown Primary Care [...] Progress Notes * Nandini Shaffer MD - 04/23/2018 3:23 PM CST Note Type: Physician progress note Patient: Loren Rashid Date: Apr 23, 2018 : 1960 Age: 58 Chief Complaint: Left breast DCIS, diagnosed January [...] on 01/17/2018 which was positive for DCIS, ER/ND positive. The patient underwent a lumpectomy on 02/19/18. There was no evidence of any residual disease. Patient is doing quite well. She denies any significant complaints. She returns here today in followup. She finished 4-1/2 weeks of radiation today. Her breast is tender and has some sunburn . She has not yet started the Anastrazole and is a little worried about using it as her boss told her she would be nauseated and vomiting. She is on Vitamin D but has not taken calcium yet. She reports she had a dexascan with Dr. 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 Current Medications: Anastrozole 1 (1 mg) Tablet Oral daily for 90 days, Albuterol Sulfate (108 (90base) mcg/act) Aerosol Powder, Breath Activated Inhalation daily, Levothyroxine Sodium 1 (50 mcg) Tablet Oral daily, Singulair 1 (10 mg) Tablet Oral daily Vital Signs: Performed on Apr 23, 2018 14:32: Height - 61. in, Weight - 157 lbs (LOW), BSA - 1.7 sq.m, BMI - 29.67, Temperature - 97.7 F (LOW), Pulse - 66 /min, Respiration - 18 /min, BP - 138/79 mm(hg), Pain - 0, Fatigue - 8, and Fall Risk - no. Review of [...] No muscle aches, Integumentary (w/breast) Normal - sunburn to left breast, Neurologic Normal - No tingling or numbness. [...] without murmurs or rubs, Breasts Abnormal - Exam deferred, but left breast with generalized redness, Abdomen Normal - No hepatosplenomegaly. Non-distended. Non- tender, Musculoskeletal Normal - No [...] house work). (ECOG) Labs: Test performed on Apr 23, 2018 14:25: WBC - 10.4, RBC - 5.12, HCT - 47.2, Hgb - 15.0, MCH - 29.3, MCHC - 31.8, MCV - 92.1, RDW - 14.9, Platelet Count - 96, Grans - 5.9, Lymph - 3.6, Mid - 0.9, Grans % - 57.2, Lymph % - 34.3, and Mid % - 8.5. 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 Plan: DCIS of the left breast, status post [...] normal will then return to yearly mammograms. This was discussed in detail. Also we discussed about use of AI. Since she is ER positive she may have some benefit from use of AI by decreasing the risk of recurrence and also a second breast cancer. Patient is agreeable to it. We again discussed the side effects which include, but not limited to, hot flashes, muscle and jointpain and increased risk of osteoporosis, also a small risk of endometrial cancer, but not as much as Tamoxifen. She should not be incapacitated with an AI and should not have nausea or vomiting. She is agreeable to trying. She has the medication at home. She will return in 3 months after her mammogram with labs. TROPHYSIOLOGIST documented in this encounter Plan of Treatment Not on file documented as of this encounter Procedures Procedure Name Priority Date/Time Associated Diagnosis Comments CBC W AUTO DIFF Routine 04/23/2018 2:25 PM ELECTROPHYSIOLOGIST COMPREHENSIVE METABOLIC PANEL Routine 04/23/2018 2:25 PM ELECTROPHYSIOLOGIST documented in this encounter Results * (ABNORMAL) CBC W AUTO DIFF (04/23/2018 2:25 PM ELECTROPHYSIOLOGIST) WBC 10.4 4.1 - 10.9 K/uL 04/23/2018 2:25 PM ELECTROPHYSIOLOGIST [facility] RBC 5.12 4.20 - 5.40 M/uL 04/23/2018 2:25 PM ELECTROPHYSIOLOGIST [facility] Hematocrit 47.2(H) 37.0 - 47.0 % 04/23/2018 2:25 PM ELECTROPHYSIOLOGIST [facility] HGB 15.0 12.0 - 16.0 g/dL 04/23/2018 2:25 PM ELECTROPHYSIOLOGIST [facility] MCH 29.3 26.0 - 32.0 pg 04/23/2018 2:25 PM ELECTROPHYSIOLOGIST [facility] MCHC 31.8 31.0 - 36.0 g/dL 04/23/2018 2:25 PM ELECTROPHYSIOLOGIST [facility] MCV 92.1 80.0 - 97.0 fl 04/23/2018 2:25 PM ELECTROPHYSIOLOGIST [facility] RED CELL DISTRIBUTION WIDTH 14.9(H) 11.5 - 14.5 % 04/23/2018 2:25 PM ELECTROPHYSIOLOGIST [facility] PLATELET COUNT 96(L) 140 - 440 K/uL 04/23/2018 2:25 PM ELECTROPHYSIOLOGIST [facility] GRANULOCYTES 5.9 2.0 - 7.8 K/uL 04/23/2018 2:25 PM ELECTROPHYSIOLOGIST [facility] LYMPHOCYTES 3.6 0.6 - 4.1 K/uL 04/23/2018 2:25 PM ELECTROPHYSIOLOGIST [facility] MIXED CELL ABSOLUTE 0.9 0.0 - 1.8 K/uL 04/23/2018 2:25 PM ELECTROPHYSIOLOGIST [facility] NEUTROPHIL % 57.2 37.0 - 92.0 % 04/23/2018 2:25 PM ELECTROPHYSIOLOGIST [facility] LYMPHOCYTE % 34.3 10.0 - 58.5 % 04/23/2018 2:25 PM ELECTROPHYSIOLOGIST [facility] MIXED CELL % 8.5 0.1 - 24.0 % 04/23/2018 2:25 PM ELECTROPHYSIOLOGIST [facility] 04/23/2018 2:25 PM ELECTROPHYSIOLOGIST Narrative [facility] - 04/23/2018 2:34 PM ELECTROPHYSIOLOGIST Repeated Testing performed at [facility]- [address] [place] [address] CLIA # [id number] PERIPHERAL SLIDE REVIEWED Read-only results ordered via the LCM/eLCM - see chart for additional updates or notes Nandini Shaffer MD LAB BLOOD ORDERABLES Performing Organization Address City/State/[facility] Co de Phone Number [facility] [address] * (ABNORMAL) COMP METABOLIC PANEL (14) (04/23/2018 2:25 PM ELECTROPHYSIOLOGIST) [facility] ALBUMIN, SERUM 4.4 3.5 - 5.7 g/dL 04/23/2018 2:25 PM ELECTROPHYSIOLOGIST [facility] ALKALINE PHOSPHATASE 105(H) 34 - 104 U/L 04/23/2018 2:25 PM ELECTROPHYSIOLOGIST [facility] Total Bilirubin 0.2(L) 0.3 - 1.0 mg/dL 04/23/2018 2:25 PM ELECTROPHYSIOLOGIST [facility] BUN 16 7 - 25 mg/dL 04/23/2018 2:25 PM ELECTROPHYSIOLOGIST [facility] CALCIUM 9.7 8.6 - 10.3 mg/dL 04/23/2018 2:25 PM ELECTROPHYSIOLOGIST [facility] CREATININE 0.78 0.60 - 1.30 mg/dL 04/23/2018 2:25 PM ELECTROPHYSIOLOGIST [facility] Creatinine Clearance (Est) 86.2300 75.0000 - 115.0000 mL/min 04/23/2018 2:25 PM ELECTROPHYSIOLOGIST [facility] GLUCOSE, RANDOM (P) 105.0 70.0 - 105.0 mg/dL 04/23/2018 2:25 PM ELECTROPHYSIOLOGIST [facility] AST 15 13 - 39 U/L 04/23/2018 2:25 PM ELECTROPHYSIOLOGIST [facility] ALT 15 7 - 52 U/L 04/23/2018 2:25 PM ELECTROPHYSIOLOGIST [facility] TOTAL PROTEIN 6.5 6.4 - 8.9 g/dL 04/23/2018 2:25 PM ELECTROPHYSIOLOGIST [facility] SODIUM 142 136 - 145 mEq/L 04/23/2018 2:25 PM ELECTROPHYSIOLOGIST [facility] POTASSIUM, SERUM 4.6 3.5 - 5.1 mEq/L 04/23/2018 2:25 PM ELECTROPHYSIOLOGIST [facility] CHLORIDE 107 98 - 107 mEq/L 04/23/2018 2:25 PM ELECTROPHYSIOLOGIST [facility] CO2 27.0 21.0 - 31.0 mEq/L 04/23/2018 2:25 PM ELECTROPHYSIOLOGIST [facility] 04/23/2018 2:25 PM ELECTROPHYSIOLOGIST Narrative [facility] - 04/23/2018 3:58 PM ELECTROPHYSIOLOGIST Testing performed at [facility]- [address] [place] [address] CLIA # [id number] Read-only results ordered via the LCM/eLCM - see chart for additional updates or notes Nandini Shaffer MD LAB BLOOD ORDERABLES Performing Organization Address City/State/[facility] Co de Phone Number [facility] [address] [place] [address] documented in this encounter Visit Diagnoses Not on filedocumented in this encounter Additional Health Concerns Infection Onset Date Last Indicated Resolved Time R/O COVID19 04/25/2021 04/26/2021 04/27/2021 2:24 AM ELECTROPHYSIOLOGIST R/O COVID19 05/16/2021 05/17/2021 05/18/2021 2:24 AM ELECTROPHYSIOLOGIST documented as of this encounter Care Teams Measurer Machine Relationship Specialty Start Date End Date Pcp, Unknown PCP - General 05/19/21 documented as of this encounter
--- OUTSIDE RECORDS SUMMARY | 2024-06-21 21:06 | XMS_ITS | Encounter Summary ---
Author Organization [facility] Address [address] [place] [address] Care Team Providers Care Certified Nursing Assistant Name Role Phone Pcp, Unknown Primary Care Provider Unavailabl e Encounter Details Date Type Department Care Team (Late st Contact Info) Description 03/15/2018 Duly Conversion Encounter [facility] CONVERSTION DEPT Social [...] Sign Reading Time Taken Comments Blood Pressure 118/65 03/15/2018 8:56 AM REAL ESTATE COORDINATOR Pulse 66 03/15/2018 8:56 AM REAL ESTATE COORDINATOR Temperature 36.7 C (98.1 F) 03/15/2018 8:56 AM REAL ESTATE COORDINATOR Respiratory Rate - - Oxygen Saturation 91% 03/15/2018 8:56 AM REAL ESTATE COORDINATOR Inhaled Oxygen Concentration - - Weight 70.9 kg (156 lb 3.2 oz) 03/15/2018 8:56 A M REAL ESTATE COORDINATOR Height - - Body Mass Index 29.51 03/07/2018 1:48 PM REAL ESTATE COORDINATOR documented in this encounter Plan of Treatment Not on file documented as of this encounter Visit Diagnoses Not on filedocumented in this encounter Additional Health Concerns Infection Onset Date Last Indicated Resolved Time R/O COVID19 04/25/2021 04/26/2021 04/27/2021 2:24 AM REAL ESTATE COORDINATOR R/O COVID19 05/16/2021 05/17/202105/18/2021 2:24 AM REAL ESTATE COORDINATOR documented as of this encounter Care Teams Certified Nursing Assistant Relationship Specialty Start Date End Date Pcp, Unknown PCP - General 05/19/21 documented as of this encounter
--- OUTSIDE RECORDS SUMMARY | 2024-06-21 21:06 | XMS_ITS | Encounter Summary ---
Author Organization [facility] Address [address] [place] [address] Care Team Providers Care Digital Content Manager Name Role Phone Pcp, Unknown Primary Care Provider Unavailabl e Encounter Details Date Type Department Care Team (Late st Contact Info) Description 01/22/2020 Duly Conversion Encounter DULY CONVERSTION DEPT Social [...] Sign Reading Time Taken Comments Blood Pressure 112/63 01/22/2020 2:32 PM END TOUCHING MACHINE OPERATOR Pulse 84 01/22/2020 2:32 PM END TOUCHING MACHINE OPERATOR Temperature 36.1 C (96.9 F) 01/22/2020 2:32 PM END TOUCHING MACHINE OPERATOR Respiratory Rate 16 01/22/2020 2:32 PM END TOUCHING MACHINE OPERATOR Oxygen Saturation - - Inhaled Oxygen Concentration - - Weight 67.6 kg (149 lb) 01/22/2020 2:32 PM END TOUCHING MACHINE OPERATOR Height 154.9 cm (5' 1 ) 01/22/2020 2:32 PM END TOUCHING MACHINE OPERATOR Body Mass Index 28.15 01/22/2020 2:32 PM END TOUCHING MACHINE OPERATOR documented in this encounter Plan of Treatment Not on file documented as of this encounter Visit Diagnoses Not on filedocumented in this encounter Additional Health Concerns Infection Onset Date Last Indicated Resolved Time R/O COVID19 04/25/2021 04/26/2021 04/27/2021 2:24 AM END TOUCHING MACHINE OPERATOR R/O COVID19 05/16/2021 05/17/2021 05/18/2021 2:24 AM END TOUCHING MACHINE OPERATOR documented as of this encounter Care Teams Digital Content Manager Relationship Specialty Start Date End Date Pcp, Unknown PCP - General 05/19/21 documented as of this encounter
--- OUTSIDE RECORDS SUMMARY | 2024-06-21 21:06 | XMS_ITS | Encounter Summary ---
Author Organization [facility] and [facility] Address [address] [place] [address] Care Team Providers Care Cylinder Machine Operator Name Role Phone Pcp, Unknown Primary Care Provider Unavailabl e Encounter Details Date Type Department Care Team (Late st Contact Info) Description 03/25/2018 Duly Conversion Encounter DULY CONVERSTION DEPT Social [...] Sign Reading Time Taken Comments Blood Pressure 140/69 03/25/2018 8:28 AM CLAM GROWER Pulse 62 03/25/2018 8:28 AM CLAM GROWER Temperature 36.5 C (97.7 F) 03/25/2018 8:28 AM CLAM GROWER Respiratory Rate 16 03/25/2018 8:28 AM CLAM GROWER Oxygen Saturation 96% 03/25/2018 8:28 AM CLAM GROWER Inhaled Oxygen Concentration - - Weight 71.5 kg (157 lb 9.6 oz) 03/25/2018 8:28 A M CLAM GROWER Height 154.9 cm (5' 1 ) 03/25/2018 8:28 AM CLAM GROWER Body Mass Index 29.78 03/25/2018 8:28 AM CLAM GROWER documented in this encounter Plan of Treatment Not on file documented as of this encounter Visit Diagnoses Not on filedocumented in this encounter Additional Health Concerns Infection Onset Date Last Indicated Resolved Time R/O COVID19 04/25/2021 04/26/2021 04/27/2021 2:24 AM CLAM GROWER R/O COVID19 05/16/2021 05/17/2021 05/18/2021 2:24 AM CLAM GROWER documented as of this encounter Care Teams Cylinder Machine Operator Relationship Specialty Start Date End Date Pcp, Unknown PCP - General 05/19/21 documented as of this encounter
--- OUTSIDE RECORDS SUMMARY | 2024-06-21 21:06 | XMS_ITS | Encounter Summary ---
Author Organization [facility] and Care Address [address] [place] [address] Care Team Providers Care Printing Assistant Name Role Phone Pcp, Unknown Primary Care Provider Unavailabl e Encounter Details Date Type Department Care Team (Late st Contact Info) Description 02/07/2018 D[facility] Conversion Encounter [facility] CONVERSTION DEPT Social [...] Sign Reading Time Taken Comments Blood Pressure 116/59 02/07/2018 11:04 AM MOBILE MANAGER Pulse 71 02/07/2018 11:04 AM MOBILE MANAGER Temperature 36.4 C (97.5 F) 02/07/2018 11:04 AM MOBILE MANAGER Respiratory Rate 16 02/07/2018 11:04 AM MOBILE MANAGER Oxygen Saturation - - Inhaled Oxygen Concentration - - Weight 70.3 kg (155 lb) 02/07/2018 11:04 AM MOBILE MANAGER Height 154.9 cm (5' 1 ) 02/07/2018 11:04 AM MOBILE MANAGER Body Mass Index 29.29 02/07/2018 11:04 AM MOBILE MANAGER documented in this encounter Plan of Treatment Not on file documented as of this encounter Visit Diagnoses Not on filedocumented in this encounter Additional Health Concerns Infection Onset Date Last Indicated Resolved Time R/O COVID19 04/25/2021 04/26/2021 04/27/2021 2:24 AM MOBILE MANAGER R/O COVID19 05/16/2021 05/17/2021 05/18/2021 2:24 AM MOBILE MANAGER documented as of this encounter Care Teams Printing Assistant Relationship Specialty Start Date End Date Pcp, Unknown PCP - General 05/19/21 documented as of this encounter
--- OUTSIDE RECORDS SUMMARY | 2024-06-21 21:06 | XMS_ITS | Encounter Summary ---
Author Organization [facility] and [facility] Address [address] [place] [address] Care Team Providers Care Coding Coordinator Name Role Phone Pcp, Unknown Primary [...] Sign Reading Time Taken Comments Blood Pressure 122/80 06/20/2018 11:46 AM CDT Pulse 76 06/20/2018 11:46 AM CDT Temperature 36.8 C (98.3 F) 06/20/2018 11:46 AM CDT Respiratory Rate 18 06/20/2018 11:46 AM CDT Oxygen Saturation - - Inhaled Oxygen Concentration - - Weight 73.9 kg (163 lb) 06/20/2018 11:46 AM CDT Height 154.9 cm (5' 1 ) 06/20/2018 11:46 AM CDT Body Mass Index 30.8 06/20/2018 11:46 AM CDT documented in this encounter Plan of Treatment Not on file documented as of this encounter Visit Diagnoses Not on filedocumented in this encounter Additional Health Concerns Infection Onset Date Last Indicated Resolved Time R/O COVID19 04/25/2021 04/26/2021 04/27/2021 2:24 AM SMALL PRODUCTS ASSEMBLER R/O COVID19 05/16/2021 05/17/2021 05/18/2021 2:24 AM SMALL PRODUCTS ASSEMBLER documented as of this encounter Care Teams Coding Coordinator Relationship Specialty Start Date End Date Pcp, Unknown PCP - General 05/19/21 documented as of this encounter
--- OUTSIDE RECORDS SUMMARY | 2024-06-21 21:06 | XMS_ITS | Encounter Summary ---
Author Organization [facility] and Care Address [address] [place] [address] Care Team Providers Care Sales Route Driver Helper Name Role Phone Pcp, Unknown Primary Care [...] Progress Notes * Nandini Shaffer MD - 03/07/2018 2:35 PM CST Note Type: Physician progress note Patient: LOREN RASHID Date: Mar 07, 2018 : 1960 Age: 57 Primary Care Physician: Dr. Thomason Consulting Physician: [...] on 01/17/2018 which was positive for DCIS, ER/[place] positive. The patient underwent a lumpectomy on 02/19/18. There was no evidence of any residual disease. Patient is doing quite well. She denies any significant complaints. Current Medications: Anastrozole 1 (1 mg) Tablet Oral daily for 90 days, Albuterol Sulfate (108 (90base) mcg/act) Aerosol Powder, Breath Activated Inhalation daily, Levothyroxine Sodium 1 (50 mcg) Tablet Oral daily, Singulair 1 (10 mg) Tablet Oral daily Vital Signs: Performed on Mar 07, 2018 13:48: Height - 61. in, Weight - 160 lbs (HIGH), BSA - 1.72 sq.m, BMI - 30.23 (HIGH), Temperature - 97.9 F (LOW), Pulse - 60 /min, Respiration - 16 /min, BP - 120/70 mm(hg), Pain - 0, Fatigue - 4, and Fall Risk - no. Review of Systems: Constitutional Normal - No fevers, chills, night sweats, generalized weakness orexcessive fatigue, HEENT Normal - No symptoms, Hematologic/Lymphatic Normal [...] No muscle aches, Integumentary (w/breast) Normal - tenderness ofthe left breast, Neurologic Normal - No tingling or numbness. No focal weakness, Psychiatric Normal- No insomnia. Physical Exam: General Normal - Alert and oriented, HEENT Normal - Normocephalic, pink conjunctivae, anicteric sclerae, Neck Normal - No adenopathy, Hematologic/Lymphatic/Skin Normal - No petechiae, purpura or rash, Respiratory Normal - Lungs are clear to auscultation without rhonchi or wheezing, Cardiovascular Normal - Regular rate and rhythm of heart without murmurs or rubs, Breasts Abnormal - left breast minimal tenderness, incision healing seroma, Abdomen Normal - No hepatosplenomegaly. Non-distended. Non- tender, Musculoskeletal Normal - No weakness or tenderness, Extremities Normal - No cyanosis, clubbing or edema, Neurologic Normal - No sensory or motor deficits. Normal cranial nerves. Performance status: 0 - Fully active, able to carry on all predisease activities without restrictions. 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 Plan: DCIS of the left breast, status post lumpectomy. I discussed the pathology findings with the patient. The patient understood that there was no evidence of residual disease, margins are clean. Her prognosis is excellent. We discussed about other options available to her. I would recommend radiation therapy to her left breast. She is going to see the radiation oncologist next week. Also we dis cussed about use of AI or Tamoxifen. Since she is ER positive she may have some benefit from use ofAI by decreasing the risk of recurrence and also a second breast cancer. Patient is agreeable to it. The side effects of AI were discussed including but not limited to hot flashes, increased risk of endometrial carcinoma. Patient is agreeable, prescription was provided. She is to otherwise see me back in 6 weeks. NDB/at ENTARY READING SPECIALIST documented in this encounter Plan of Treatment Not on file documented as of this encounter Visit Diagnoses Not on filedocumented in this encounter Additional Health Concerns Infection Onset Date Last Indicated Resolved Time R/O COVID19 04/25/2021 04/26/2021 04/27/2021 2:24 AM ELEMENTARY READING SPECIALIST R/O COVID19 05/16/2021 05/17/2021 05/18/2021 2:24 AM ELEMENTARY READING SPECIALIST documented as of this encounter Care Teams Sales Route Driver Helper Relationship Specialty Start Date End Date Pcp, Unknown PCP - General 05/19/21 documented as of this encounter
--- OUTSIDE RECORDS SUMMARY | 2024-06-21 21:06 | XMS_ITS | Referral Summary ---
Author Organization [facility] Address [address] [place] [address] Care Team Providers Care Steam Tank Operator Name Role Phone Unavailable Primary Care Provider [...] 10/28/2017 1:55 PM CDT Plan of Treatment Not on file
--- OUTSIDE RECORDS SUMMARY | 2024-06-21 21:06 | XMS_ITS | Encounter Summary ---
Author Organization [facility] and Care Address [address] [place] [address] Care Team Providers Care Assessment Consultant Name Role Phone Pcp, Unknown Primary Care [...] Progress Notes * Nandini Shaffer MD - 02/07/2018 12:17 PM CST Note Type: Initial Consultation Patient: LOREN RASHID Date: Feb 07, 2018 : 1960 Age: 57 Karen Thomason M.D. Thank you for your kind referral of LOREN RASHID for hematology/oncology consultation. Although you are undoubtedly familiar with her history, please allow me to review it for our records. Chief Complaint: Left breast DCIS, diagnosed January 2018, status post biopsy. Primary Care Physician: Dr. Thomason Consulting Physician: Dr. Yousif History of Present Illness: This is a very pleasant post-menopausal female who was evaluated by on a routine visit and had a mammogram done which was noted to have microcalcifications inthe left breast in the central portion. She underwent a biopsy of it on 01/17/2018 which was positive for DCIS, ER/AK positive. The patient is now here for discussion and further management. She overall is doing quite well. She has never had a biopsy before. In fact, she has not seen a physician fora long time. She was recently started on Synthroid and Singulair. She denies having any other issues. The patient has not had any other surgeries in the past. She lives by herself. She works at the [employer]. She does not smoke. She drinks occasionally. Her family history is rather noncontributory. Her paternal grandmother had lung cancer. She was a smoker. She does not have much of a family history on her maternal side. Her mom at age 21 due to heart complications. She is accompaniedby her friend. She does have very good social support. The patient is a little anxious but felt very comfortable after my discussion with her. She did meet with our nurse navigator, Maribel. Past Medical History: Ms. HEBERTs medical history consists of COPD and Hypothyroidism in 2018. Past Surgical History: Ms. Segal surgical/procedural history consists of Appendectomy in 1985 and right oopherectomy in 1985. Allergies: No Known Allergies. 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 Ms. RASHID quit smoking 2 years ago but had smoked 1.0 pack/day [...] HEBERTs mother is : heart complications. Ms. HEBERTs father is : Renal failure. Ms. RASHID's maternal grandmother is . Her maternal grandfather is . Her paternal grandmother is . Her paternal grandfather is . Ms. RASHID has 1 brother who is alive. She has 2 sisters: 2 alive. She has 3 sons: 3 alive. She has 1 daughter who is alive. no family hx of malignancy. Vital Signs: Performed on Feb 07, 2018 11:04: Height - 61 in, Weight - 155 lbs, BSA - 1.7 sq.m, BMI- 29.29, Temperature - 97.5 F (LOW), Pulse - 71 /min, Respiration - 16 /min, BP - 116/59 mm(hg), Pain - 0, Fatigue - 0, and Fall Risk - no. Review of [...] - No skin rash or discoloration, Neurologic Normal - No tingling or numbness. [...] of heart without murmurs or rubs, Breasts Normal - left breast minimal tenderness due to recent biopsy, Abdomen Normal - No hepatosplenomegaly. Non-distended. Non-tender, Musculoskeletal Normal - No weakness or tenderness, Extremities Normal - No cyanosis, clubbing or edema, Neurologic Normal - No sensory or motor deficits. Normal cranial nerves. Impression: DCIS of the left breast, status post biopsy in January 2018. Plan: DCIS of the left breast. The patient has had a biopsy. I explained to the patient that if DCIS was very early cancer the prognosis is excellent. There is a chance that on a lumpectomy we may see some infiltration, however, her Ki index was very low. The risk of recurrence and metastases is very low. I would like her to get a lumpectomy. The rationale of that was discussed with her. She understood that after lumpectomy, I would recommend radiation. I have referred her to Dr. Yousif as she requested to see her and also referred her to Dr. Handley for radiation therapy. She understood thenatural history of breast cancer. Since she was estrogen receptor positive and menopausal, I would r ecommend an aromatase inhibitor after the lumpectomy. The patient understood it. She verbalized understanding. She was very comfortable with our discussion. She is going to see Dr. Yousif soon. I have contacted Dr. Yousif and discussed this with her. The patient is to otherwise see me back in a month. I have reviewed her family history in detail. I explained to her that some of these cancers can be genetic, however, given her family history and her tumor characteristics, the probability of carrying a deleterious mutation is quite low. We also went through the NCCN guidelines and at this time,I would not recommend her for any genetic testing. Electronically Signed by: Nandini Shaffer M.D. Feb 07, 2018 NDB/justin cc: Elida Yousif M.D. ICAL NURSE EDUCATOR documented in this encounter Plan of Treatment Not on file documented as of this encounter Visit Diagnoses Not on filedocumented in this encounter Additional Health Concerns Infection Onset Date Last Indicated Resolved Time R/O COVID19 04/25/2021 04/26/2021 04/27/2021 2:24 AM CLINICAL NURSE EDUCATOR R/O COVID19 05/16/2021 05/17/2021 05/18/2021 2:24 AM CLINICAL NURSE EDUCATOR documented as of this encounter Care Teams Assessment Consultant Relationship Specialty Start Date End Date Pcp, Unknown PCP - General 05/19/21 documented as of this encounter
--- OUTSIDE RECORDS SUMMARY | 2024-06-21 21:06 | XMS_ITS | Encounter Summary ---
Author Organization [facility] Address [address] [place] [address] Care Team Providers Care Certified Family Mediator Name Role Phone Pcp, Unknown Primary Care [...] as of this encounter Progress Notes * DMG CONVERSION PROVIDER - 01/22/2020 9:06 AM CST Note Type: Physician progress note Patient: LOREN RASHID Date: Jan 22, 2020 : 1960 Age: 59 Chief Complaint: Left breast DCIS, diagnosed January [...] on 01/17/2018 which was positive for DCIS, ER/[place] positive. The patient underwent a lumpectomy on [...] There is no swelling. She had a repeat left sided mammogram which shows the presence of stablescaring. Patient has not had a flu vaccination and does not want it. She is going to follow up witha primary care physician and receive the pneumococcal and the SHINGRIX vaccine. Past Medical History: Ms. RASHID's medical history consists of COPD and Hypothyroidism in 2018. Past Surgical History: Ms. HEBERTs surgical/procedural history consists of Lumpectomy in 2018 - left breast, Appendectomy in 1985, and right oophorectomy in 1985. 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 Ms. RASHID quit smoking 2 years [...] level as: daily activities. Family History: Ms. RASHID's mother is : heart complications. Ms. RASHID's [...] (20 mg) Tablet Oral q 48 hours, Xanax 1 (.5 mg) Tablet Oral daily Vital Signs: Performed on Jan 22, 2020 14:32: Height - 61. in, Weight - 149 lbs (HIGH), BSA - 1.67 sq.m, BMI - 28.15, Temperature - 96.9 F (LOW), Pulse - 84 /min, Respiration - 16 /min, BP - 112/63 mm(hg), Pain - 0, Fatigue - 0, [...] without restrictions. (ECOG) Labs: Test performed on Jan 22, 2020 14:30: Albumin - 4.4, Alkaline Phosphatase - 88, Bilirubin, Total - 0.3, BUN - 19, Calcium - 9.3, Creatinine - 0.88, Cr Clearance (Est) - 71.6300, Glucose - 132.0, AST (SGOT) - 16, ALT (SGPT) - 10, Protein, Total - 6.4, Sodium - 140, Potassium - 4.5, Chloride - 102, CO2 - 29.9, WBC - 10.5, RBC - 4.69, HCT - 43.9, Hgb - 13.7, MCH - 29.2, MCHC - 31.2, MCV - 93.7, RDW - 13.1, Platelet Count - 294, Grans - 7.5, Lymph - 2.5, Mid - 0.5, Grans % - 71.5, Lymph % - 23.8, and Mid % - 4.7. 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 and RT 04/2018 and low dose tamoxifen Plan: 1. DCIS of the left breast status lumpectomy. She received radiation, completed in April of 2018. Has been on low dose tamoxifen, will continue the same. She does not require any prescriptions. Bilateral mammogram in April of 2019. 2. We discussed about a flu vaccination, patient does not want it. 3. Screening colonoscopy was also discussed. Patient is agreeable to it. She wishes to follow up with Dr. Rowan for it. I have made the referral. She is going to call their office. Patient to see me back in 4 months. 4. Patient also had many questions regarding the campa virus, she is anxious about it. I discussedit with her. I explained to her that social distancing and masking was the best prevention. She also had a few questions regarding the vaccine. I notified her that we do not have much information about it at this time. Hopefully the vaccine will be available soon and it will be affective. Patient did not require any counseling at this time. NB/nm R documented in this encounter Plan of Treatment Not on file documented as of this encounter Procedures Procedure Name Priority Date/Time Associated Diagnosis Comments CBC W AUTO DIFF Routine 01/22/2020 2:30 PM LURER COMPREHENSIVE METABOLIC PANEL Routine 01/22/2020 2:30 PM LURER documented in this encounter Results * CBC W AUTO DIFF (01/22/2020 2:30 PM LURER) WBC 10.5 4.1 - 10.9 K/uL 01/22/2020 2:30 PM LURER [facility] RBC 4.69 4.20 - 5.40 M/uL 01/22/2020 2:30 PM LURER [facility] Hematocrit 43.9 37.0 - 47.0 % 01/22/2020 2:30 PM LURER [facility] HGB 13.7 12.0 - 16.0 g/dL 01/22/2020 2:30 PM LURER [facility] MCH 29.2 26.0 - 32.0 pg 01/22/2020 2:30 PM LURER [facility] MCHC 31.2 31.0 - 36.0 g/dL 01/22/2020 2:30 PM LURER [facility] MCV 93.7 80.0 - 97.0 fl 01/22/2020 2:30 PM LURER [facility] RED CELL DISTRIBUTION WIDTH 13.1 11.5 - 14.5 % 01/22/2020 2:30 PM LURER [facility] PLATELET COUNT 294 140 - 440 K/uL 01/22/2020 2:30 PM LURER [facility] GRANULOCYTES 7.5 2.0 - 7.8 K/uL 01/22/2020 2:30 PM LURER [facility] LYMPHOCYTES 2.5 0.6 - 4.1 K/uL 01/22/2020 2:30 PM LURER [facility] MIXED CELL ABSOLUTE 0.5 0.0 - 1.8 K/uL 01/22/2020 2:30 PM LURER [facility] NEUTROPHIL % 71.5 37.0 - 92.0 % 01/22/2020 2:30 PM LURER [facility] LYMPHOCYTE % 23.8 10.0 - 58.5 % 01/22/2020 2:30 PM LURER [facility] MIXED CELL % 4.7 0.1 - 24.0 % 01/22/2020 2:30 PM LURER [facility] 01/22/2020 2:30 PM LURER Narrative [facility] - 01/22/2020 2:36 PM LURER Testing performed at [facility]- [address] [place], [place] [address]IA # [id number] Read-only results ordered via the LCM/eLCM - see chart for additional updates or notes Nandini Shaffer MD LAB BLOOD ORDERABLES [facility] [address] [place] [address] * (ABNORMAL) COMP METABOLIC PANEL (14) (01/22/2020 2:30 PM LURER) [facility] ALBUMIN, SERUM 4.4 3.5 - 5.7 g/dL 01/22/2020 2:30 PM LURER [facility] ALKALINE PHOSPHATASE 88 34 - 104 U/L 01/22/2020 2:30 PM LURER [facility] Total Bilirubin 0.3 0.3 - 1.0 mg/dL 01/22/2020 2:30 PM LURER [facility] BUN 19 7 - 25 mg/dL 01/22/2020 2:30 PM LURER [facility] CALCIUM 9.3 8.6 - 10.3 mg/dL 01/22/2020 2:30 PM LURER [facility] CREATININE 0.88 0.60 - 1.30 mg/dL 01/22/2020 2:30 PM LURER [facility] Creatinine Clearance (Est) 71.6300(L) 75.0000 - 115.0000 mL/min 01/22/2020 2:30 PM LURER [facility] GLUCOSE, RANDOM (P) 132.0(H) 70.0 - 105.0 mg/dL 01/22/2020 2:30 PM LURER [facility] AST 16 13 - 39 U/L 01/22/2020 2:30 PM LURER [facility] ALT 10 7 - 52 U/L 01/22/2020 2:30 PM LURER [facility] TOTAL PROTEIN 6.4 6.4 - 8.9 g/dL 01/22/2020 2:30 PM LURER [facility] SODIUM 140 136 - 145 mEq/L 01/22/2020 2:30 PM LURER [facility] POTASSIUM, SERUM 4.5 3.5 - 5.1 mEq/L 01/22/2020 2:30 PM LURER [facility] CHLORIDE 102 98 - 107 mEq/L 01/22/2020 2:30 PM LURER [facility] CO2 29.9 21.0 - 31.0 mEq/L 01/22/2020 2:30 PM LURER [facility] 01/22/2020 2:30 PM LURER Narrative [facility] - 01/22/2020 3:31 PM LURER Testing performed at [facility]- [address] # [id number] Read-only results ordered via the LCM/eLCM - see chart for additional updates or notes Nandini Shaffer MD LAB BLOOD ORDERABLES Performing Organization Address City/State/[facility] Co de Phone Number [facility] [address] documented in this encounter Visit Diagnoses Not on filedocumented in this encounter Additional Health Concerns Infection Onset Date Last Indicated Resolved Time R/O COVID19 04/25/2021 04/26/2021 04/27/2021 2:24 AM LURER R/O COVID19 05/16/2021 05/17/2021 05/18/2021 2:24 AM LURER documented as of this encounter Care Teams Certified Family Mediator Relationship Specialty Start Date End Date Pcp, Unknown PCP - General 05/19/21 documented as of this encounter
--- OUTSIDE RECORDS SUMMARY | 2024-06-21 21:06 | XMS_ITS | Referral Summary ---
Author Organization [facility] Address [address] [place] [address] Care Team Providers Care Software Engineering Manager Name Role Phone Unavailable Primary Care Provider Unavailabl e Source Comments You are receiving this document as you are listed as the PCP, follow-upprovider, or the patient hasbeen referred to you for consultation. This is incompliance with [facility] Transitions of Care Requirement. Note: Specific treatmentrecords and notes about services for mental health, developmental disabilities,alcoholism, drug dependence, or substance abuse, you will need to contact theMedical Records Department at [phone] and complete a separate Release ofAuthorization form. They are also available to answer other questions.[facility] Social History Tobacco Use Types Packs/Day Years Used Date Smoking Tobacco: Never Assessed Sex and Gender Information Value Date Recorded Sex Assigned at Not on file Gender Identity Not on file Sexual Orientation Not on file Plan of Treatment Not on file
--- OUTSIDE RECORDS SUMMARY | 2024-06-21 21:06 | XMS_ITS | Clinical Summary ---
Author Organization [employer] [facility] [employer] Address [address] [place] [address], [facility] [address] [id number] Phone Care Team Providers Care Progressive Die Maker Name Role Phone Karen Thomason Primary Care Provider [phone] Allergies No known active allergies Medications cholecalciferol (Vitamin D-3) 25 MCG (1000 UT) tablet Take 1,000 Units by mouth. 12/07/2020 Active escitalopram (Lexapro) 10 MG tablet Take 10 mg by mouth. Active levothyroxine (Synthroid, Levoxyl) 75 MCG tablet Take 75 mcg by mouth. Active montelukast (Singulair) 10 MG tablet Take 10 mg by mouth. 12/07/2020 Active ALPRAZolam (Xanax) 0.5 MG tablet Take 0.5 mg by mouth if needed each day. 07/28/2021 Active albuterol 108 (90 Base) MCG/ACT inhaler Inhale 2 puffs every 6 (six) hours if needed. 06/06/2021 Active Pulmicort Flexhaler 90 MCG/ACT inhaler Inhale 1 puff in the morning and at bedtime. 2022 Active celecoxib (CeleBREX) 200 MG capsuleIndicati ons:Subacromial bursitis of right shoulder TAKE ONE CAPSULE BY MOUTH ONCE IN THE MORNING AND ONCE AT BEDTIME FOR 14 DAYS, THEN TAKE 1 CAPSULE BY MOUTH ONCE IN THE MORNING FOR 14 DAYS 40 capsule 06/08/2022 Active tamoxifen (Nolvadex) 20 MG chemo tablet Take 20 mg by mouth in the morning. 06/16/2022 Active Active Problems Problem Noted Date Diagnosed Date Chronic obstructive pulmonary disease 08/25/2021 Immunizations Immunization Administration Dates Next Due Pfizer SARS-CoV-2 Vaccination 06/15/2020, 021 Family History Medical History Relation Name Comments Anxiety disorder Father Cancer Father Gout Father Thyroid disease Father Tuberculosis Father Emphysema Other Relation Name Status Comments Father Other Social History Tobacco Use Types Packs/Day Years Used Date Smoking Tobacco: Former Smokeless Tobacco: Never Tobacco Cessation:Counseling Given: Not Answered Alcohol Use Standard Drinks/Week Comments Yes 0 (1 standard drink = 0.6 oz pur e alcohol) occasional Comments Unknown Sex and Gender Information Value Date Recorded Sex Assigned at Not on file Legal Sex Female 8:20 AM PROCESS 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 Gender Identity Not on file Sexual Orientation Not on file Last Filed Vital Signs Vital Sign Reading Time Taken Comments Blood Pressure - - Pulse - - Temperature - - Respiratory Rate - - Oxygen Saturation - - Inhaled Oxygen Concentration - - Weight 73 kg (161 lb) 05/30/2022 1:26 PM CDT Height 152.4 cm (5') 05/30/2022 1:26 PM CDT Body Mass Index 31.44 05/30/2022 1:26 PM CDT Plan of Treatment Health Maintenance Due Date Last Done Comments Pneumococcal Vaccine: 65+ Ye ars (1 of 4 - PCV) 1977 Annual Imaging after Total K nee Replacement 05/31/2023 05/30/2022, 01/30/2022, 12/27/2021, Additional history exists Influenza Vaccine (Season Ended) 2024 Bone Density Scan Completed 08/02/2021, 08/02/2021 Procedures Procedure Name Priority Date/Time Associated Diagnosis Comments XR KNEE 3 VIEWS RIGHT Routine 05/30/2022 1:32 PM CDT Presence of right artificial knee joint from Last 3 Months or Most Recently Relevant to Health Maintenance Results * XR KNEE 3 VIEWS RIGHT (05/30/2022 1:32 PM CDT) Anatomical Region Laterality Modality Lower Extremities, Knee Right Computed Radiography Narrative 05/31/2022 12:45 PM CDT Stable position of the prosthesis. No acute fracture or dislocation seen. Gio Feliz MD IMG XR PROCEDURES Final Result from Last 3 Months or Most Recently Relevant to Health Maintenance Insurance [facility] Care Teams Progressive Die Maker Relationship Specialty Start Date End Date Karen Thomason [address] [place] [address] PCP - General 08/09/21
--- OUTSIDE RECORDS SUMMARY | 2024-06-21 21:06 | XMS_ITS | Encounter Summary ---
Author Organization [facility] and Care Address [address] [place] [address] Care Team Providers Care Bellows Tester Name Role Phone Pcp, Unknown Primary Care Provider Unavailabl e Encounter Details Date Type Department Care Team (Late st Contact Info) Description 04/01/2018 Duly Conversion Encounter DULY CONVERSTION DEPT Social [...] Sign Reading Time Taken Comments Blood Pressure 127/65 04/01/2018 8:18 AM SKID STRAPPER Pulse 63 04/01/2018 8:18 AM SKID STRAPPER Temperature 36.3 C (97.3 F) 04/01/2018 8:18 AM SKID STRAPPER Respiratory Rate 16 04/01/2018 8:18 AM SKID STRAPPER Oxygen Saturation 97% 04/01/2018 8:18 AM SKID STRAPPER Inhaled Oxygen Concentration - - Weight 70.4 kg (155 lb 3.2 oz) 04/01/2018 8:18 A M SKID STRAPPER Height 154.9 cm (5' 1 ) 04/01/2018 8:18 AM SKID STRAPPER Body Mass Index 29.32 04/01/2018 8:18 AM SKID STRAPPER documented in this encounter Plan of Treatment Not on file documented as of this encounter Visit Diagnoses Not on filedocumented in this encounter Additional Health Concerns Infection Onset Date Last Indicated Resolved Time R/O COVID19 04/25/2021 04/26/2021 04/27/2021 2:24 AM SKID STRAPPER R/O COVID19 05/16/2021 05/17/2021 05/18/2021 2:24 AM SKID STRAPPER documented as of this encounter Care Teams Bellows Tester Relationship Specialty Start Date End Date Pcp, Unknown PCP - General 05/19/21 documented as of this encounter
--- OUTSIDE RECORDS SUMMARY | 2024-06-21 21:06 | XMS_ITS | Encounter Summary ---
Author Organization [facility] Address [address] [place] [address] Care Team Providers Care Supervisor Claims Name Role Phone Pcp, Unknown Primary Care Provider Unavailabl e Encounter Details Date Type Department Care Team ([facility] st Contact Info) Description 08/02/2021 Orders Only Oncology - [facility] [address] [place] [address] [place] [address] [place], [place] [id number] Social History Tobacco Use Types Packs/Day Years Used Date Smoking Tobacco: Former Smokeless Tobacco: Never Alcohol Use Standard Drinks/Week Comments Never 0 (1 standard drink = 0.6 oz pur e alcohol) Sex and Gender Information Value Date Recorded Sex Assigned at Female 08/10/2021 9:16 PM CDT Gender Identity Female 08/10/2021 9:16 PM CDT Sexual Orientation Straight 08/10/2021 9: 16 PM CDT documented as of this encounter Progress Notes * Nandini Shaffer MD - 08/02/2021 9:45 AM CDT Scans were reviewed will discuss at next visit. Calcium and vitamin d supplement will d/w bisphosphanated documented in this encounter Plan of Treatment Not on file documented as of this encounter Procedures Procedure Name Priority Date/Time Associated Diagnosis Comments DEXA BONE DENSITY AXIAL (VLE=[id number]) 08/02/2021 9:33 AM CDT documented in this encounter Results * DEXA BONE DENSITY AXIAL (NUM=[id number]) (08/02/2021 9:33 AM CDT) Anatomical Region Laterality Modality Other 08/02/2021 9:33 AM CDT Narrative 08/02/2021 9:42 AM CDT [address] NAME: LOREN RASHID /AGE/SEX: 1960 - 61 - F PHYSICIAN: Nandini Shaffer M.D. ADMIT DATE: UNIT #: [id number] DIS DATE: LOC/RM/BED: D01MO- [facility] RAD/XR BONE DENSITY : [id number] ORDER DATE: 08/02/21 REPORT # : [id number] Exam: Bone Densitometry Indication: Osteoporosis rescreening. Comparison: 02/08/2018. Technical Factors: Utilizing dual-isotope imaging technique the spine and hip were evaluated. Findings: On AP projection of the lumbar spine the bone mineral density is 0.798 g/sq cm corresponding with a T-score value of -2.0. This is consistent with osteopenia and an increased fracture risk. However there has been a statistically significant 5% increase in bone density in th e spine when compared with the prior study. In the femoral neck the bone mineral density is 0.774 g/sq cm corresponding with a T-score value of -0.7. This remains within normal limits and there is no increased fracture risk with no statistically significant change. 10 Year Fracture Risk: Major osteoporotic fracture 11% Hip fracture 0.6% Impression: Osteopenia associated with an increased fracture risk. DICTATED: Erik Loredo M.D. <Electronically signed by Erik Loredo M.D. in OV> Erik Loredo M.D. 08/02/21940 DRAFT UNTIL SIGNED S: Signed 2 2 PS REPORT#:[id number] CC: Nandini Shaffer M.D. of 1 Procedure Note Generated, Interface - 08/02/[address] NAME: LOREN RASHID/AGE/SEX: 1960 - 61 - F PHYSICIAN: Nandini Shaffer M.D. ADMITDATE: UNIT #: [id number] DISDATE: //BED: D01MO- [facility] RAD/XR BONE DENSITY : [id number] ORDER DATE: 08/02/21 REPORT # : [id number] Exam: Bone Densitometry Indication: Osteoporosis rescreening. Comparison: 02/08/2018. Technical Factors: Utilizing dual-isotope imaging technique the spine andhip were evaluated. Findings: On AP projection of the lumbar spine the bone mineral densityis 0.798 g/sq cm corresponding with a T-score value of -2.0. This is consistent withosteopenia and an increased fracture risk. However there has been a statistically significant 5%increase in bone density in th e spine when compared with the prior study. In the femoral neck the bone mineral density is 0.774 g/sq cmcorresponding with a T-score value of -0.7. This remains within normal limits and there is no increased fracturerisk with no statistically significant change. 10 Year Fracture Risk: Major osteoporotic fracture 11% Hip fracture 0.6% Impression: Osteopenia associated with an increased fracture risk. DICTATED: Erik Loredo M.D. <Electronically signed by Erik Loredo M.D. in OV> Erik Loredo M.D. 08/02/2141 DRAFT UNTIL SIGNED S: Signed 2 09 PS REPORT#:[id number] CC: Nandini Shaffer M.D. of 1 Nandini Shaffer MD RIS DEXA documented in this encounter Visit Diagnoses Not on filedocumented in this encounter Care Teams Supervisor Claims Relationship Specialty Start Date End Date Pcp, Unknown PCP - General 05/19/21 documented as of this encounter
--- OUTSIDE RECORDS SUMMARY | 2024-06-21 21:06 | XMS_ITS | Encounter Summary ---
Author Organization [facility] and Care Address [address] [place] [address] Care Team Providers Care Marketing Account Manager Name Role Phone Pcp, Unknown Primary Care Provider Unavailabl e Encounter Details Date Type Department Care Team (Late st Contact Info) Description 05/08/2018 Duly Conversion Encounter DULY CONVERSTION DEPT Social [...] Sign Reading Time Taken Comments Blood Pressure 100/58 05/08/2018 8:21 AM ART LIBRARIAN Pulse 59 05/08/2018 8:21 AM ART LIBRARIAN Temperature 36.4 C (97.6 F) 05/08/2018 8:21 AM ART LIBRARIAN Respiratory Rate - - Oxygen Saturation 95% 05/08/2018 8:21 AM ART LIBRARIAN Inhaled Oxygen Concentration - - Weight 72.8 kg (160 lb 9.6 oz) 05/08/2018 8:21 A M ART LIBRARIAN Height - - Body Mass Index 30.35 04/23/2018 2:32 PM ART LIBRARIAN documented in this encounter Plan of Treatment Not on file documented as of this encounter Visit Diagnoses Not on filedocumented in this encounter Additional Health Concerns Infection Onset Date Last Indicated Resolved Time R/O COVID19 04/25/2021 04/26/2021 04/27/2021 2:24 AM ART LIBRARIAN R/O COVID19 05/16/2021 05/17/202105/18/2021 2:24 AM ART LIBRARIAN documented as of this encounter Care Teams Marketing Account Manager Relationship Specialty Start Date End Date Pcp, Unknown PCP - General 05/19/21 documented as of this encounter
--- OUTSIDE RECORDS SUMMARY | 2024-06-21 21:06 | XMS_ITS | Clinical Summary ---
Author Organization [facility] Address [address] [place] [address] Care Team Providers Care Analysis Reporting Developer Name Role Phone Pcp, Unknown Primary Care Provider Unavailabl e Allergies No known active allergies Medications Benadryl/Maalox/ Lidocaine 1:1:1 solution Take 5-10 mL by mouth TID AC&HS. [id number]- 98 120 mL 09/17/2018 Active Social History Tobacco Use Types Packs/Day Years Used Date Smoking Tobacco: Former Smokeless Tobacco: Never Alcohol Use Standard Drinks/Week Comments Never 0 (1 standard drink = 0.6 oz pur e alcohol) Comments Unknown Sex and Gender Information Value Date Recorded Sex Assigned at Not on file Legal Sex Female 1:20 PM CHEMICAL CHECKER Gender Identity Not on file Sexual Orientation Not on file Last Filed Vital Signs Vital Sign Reading Time Taken Comments Blood Pressure 130/75 01/04/2021 11:48 AM CDT Pulse 67 01/04/2021 11:48 AM CDT Temperature 37.3 C (99.1 F) 01/04/2021 11:48 AM CDT Respiratory Rate 14 01/04/2021 11:48 AM CDT Oxygen Saturation 97% 09/01/2020 8:33 AM CDT Inhaled Oxygen Concentration - - Weight 71.7 kg (158 lb) 01/04/2021 11:48 AM CDT Height 154.9 cm (5' 1 ) 01/04/2021 11:48 AM CDT Body Mass Index 29.85 01/04/2021 11:48 AM CDT Plan of Treatment Health Maintenance Due Date Last Done Comments Annual Physical 1960 Insurance Beet[employer] Care Teams Analysis Reporting Developer Relationship Specialty Start Date End Date Pcp, Unknown PCP - General 05/19/21
--- OUTSIDE RECORDS SUMMARY | 2024-06-21 21:06 | XMS_ITS | Encounter Summary ---
Author Organization [facility] and Care Address [address] [place] [address] Care Team Providers Care Search Marketing Coordinator Name Role Phone Pcp, Unknown Primary Care Provider Unavailabl e Encounter Details Date Type Department Care Team (Late st Contact Info) Description 11/08/2018 Duly Conversion Encounter DULY CONVERSTION DEPT Social [...] Sign Reading Time Taken Comments Blood Pressure 108/63 11/08/2018 8:03 AM CDT Pulse 57 11/08/2018 8:03 AM CDT Temperature 36.8 C (98.2 F) 11/08/2018 8:03 AM CDT Respiratory Rate - - Oxygen Saturation 94% 11/08/2018 8:03 AM CDT Inhaled Oxygen Concentration - - Weight 72.7 kg (160 lb 3.2 oz) 11/08/2018 8:03 A M CDT Height - - Body Mass Index 30.27 09/17/2018 9:42 PM CDT documented in this encounter Plan of Treatment Not on file documented as of this encounter Visit Diagnoses Not on filedocumented in this encounter Additional Health Concerns Infection Onset Date Last Indicated Resolved Time R/O COVID19 04/25/2021 04/26/2021 04/27/2021 2:24 AM DEBT RECOVERY OFFICER R/O COVID19 05/16/2021 05/17/2021 05/18/2021 2:24 AM DEBT RECOVERY OFFICER documented as of this encounter Care Teams Search Marketing Coordinator Relationship Specialty Start Date End Date Pcp, Unknown PCP - General 05/19/21 documented as of this encounter
--- OUTSIDE RECORDS SUMMARY | 2024-06-21 21:06 | XMS_ITS | Encounter Summary ---
Author Organization [facility] and Care Address [address] [place] [address] Care Team Providers Care Keyboard Instrument Tuner Name Role Phone Pcp, Unknown Primary Care Provider Unavailabl e Encounter Details Date Type Department Care Team (Late st Contact Info) Description 04/30/2018 Duly Conversion Encounter DULY CONVERSTION DEPT Social History Tobacco Use Types Packs/Day Years Used Date Smoking Tobacco: Never Assessed Sex and Gender Information Value Date Recorded Sex Assigned at Female 08/10/2021 9:16 PM CDT Gender Identity Female 08/10/2021 9:16 PM CDT Sexual Orientation Straight 08/10/2021 9: 16 PM CDT documented as of this encounter Progress Notes * DMG CONVERSION PROVIDER - 04/30/2018 10:41 AM CST Note Type: Nurses Note Location: [facility] Patient: LOREN RASHID : 1960 Attending Physician: Nandini Shaffer M.D. Date: Apr 30, 2018 Allergies: No Known Allergies. Pt here for CBC monitoring. CBC drawn, results received & reviewed with pt. Pt denies any c/o & is pleased with CBC results. CBC results reviewed with . No new orders received. Copy of CBC result & next appt schedule given to & reviewed with pt. Pt instructed to call office for any questions or concerns. Instructed to RTC as scheduled or sooner if needed. Pt verbalized understanding. SHED YARN EXAMINER documented in this encounter Plan of Treatment Not on file documented as of this encounter Procedures Procedure Name Priority Date/Time Associated Diagnosis Comments CBC W AUTO DIFF Routine 04/30/2018 9:15 AM FINISHED YARN EXAMINER documented in this encounter Results * (ABNORMAL) CBC W AUTO DIFF (04/30/2018 9:15 AM FINISHED YARN EXAMINER) WBC 6.4 4.1 - 10.9 K/uL 04/30/2018 9:15 AM FINISHED YARN EXAMINER [facility] PROC[facility] RBC 4.79 4.20 - 5.40 M/uL 04/30/2018 9:15 AM FINISHED YARN EXAMINER [facility] Hematocrit 43.2 37.0 - 47.0 % 04/30/2018 9:15 AM FINISHED YARN EXAMINER [facility] HGB 14.1 12.0 - 16.0 g/dL 04/30/2018 9:15 AM FINISHED YARN EXAMINER [facility] PROC[facility] MCH 29.4 26.0 - 32.0 pg 04/30/2018 9:15 AM FINISHED YARN EXAMINER [facility] PROC[facility] MCHC 32.6 31.0 - 36.0 g/dL 04/30/2018 9:15 AM FINISHED YARN EXAMINER [facility] PROC[facility] MCV 90.2 80.0 - 97.0 fl 04/30/2018 9:15 AM FINISHED YARN EXAMINER [facility] PROC[facility] RED CELL DISTRIBUTION WIDTH 14.8(H) 11.5 - 14.5 % 04/30/2018 9:15 AM FINISHED YARN EXAMINER [facility] PROC[facility] PLATELET COUNT 279 140 - 440 K/uL 04/30/2018 9:15 AM FINISHED YARN EXAMINER [facility] PROC[facility] GRANULOCYTES 4.6 2.0 - 7.8 K/uL 04/30/2018 9:15 AM FINISHED YARN EXAMINER [facility] PROC[facility] LYMPHOCYTES 1.3 0.6 - 4.1 K/uL 04/30/2018 9:15 AM FINISHED YARN EXAMINER [facility] PROC[facility] MIXED CELL ABSOLUTE 0.4 0.0 - 1.8 K/uL 04/30/2018 9:15 AM FINISHED YARN EXAMINER [facility] PROC[facility] NEUTROPHIL % 72.6 37.0 - 92.0 % 04/30/2018 9:15 AM FINISHED YARN EXAMINER [facility] PROC[facility] LYMPHOCYTE % 20.9 10.0 - 58.5 % 04/30/2018 9:15 AM FINISHED YARN EXAMINER [facility] PROC[facility] MIXED CELL % 6.5 0.1 - 24.0 % 04/30/2018 9:15 AM FINISHED YARN EXAMINER [facility] PROCEDURE 04/30/2018 9:15 AM FINISHED YARN EXAMINER Narrative [facility] - 04/30/2018 9:26 AM FINISHED YARN EXAMINER Testing performed at [facility]- [address] [place], [place] [address]IA # [id number] Read-only results ordered via the LCM/eLCM - see chart for additional updates or notes Nandini Shaffer MD LAB BLOOD ORDERABLES Performing Organization Address City/State/[facility] Co de Phone Number [facility] PROCED[facility] [address] [place] [address] documented in this encounter Visit Diagnoses Not on filedocumented in this encounter Additional Health Concerns Infection Onset Date Last Indicated Resolved Time R/O COVID19 04/25/2021 04/26/2021 04/27/2021 2:24 AM FINISHED YARN EXAMINER R/O COVID19 05/16/2021 05/17/2021 05/18/2021 2:24 AM FINISHED YARN EXAMINER documented as of this encounter Care Teams Keyboard Instrument Tuner Relationship Specialty Start Date End Date Pcp, Unknown PCP - General 05/19/21 documented as of this encounter
--- OUTSIDE RECORDS SUMMARY | 2024-06-21 21:06 | XMS_ITS | Encounter Summary ---
Author Organization [facility] Address [address] [place] [id number] Care Team Providers Care Bilingual School Psychologist Name Role Phone Pcp, Unknown Primary Care Provider Unavailabl e Encounter Details Date Type Department Care Team (Late st Contact Info) Description 01/04/2021 Duly Conversion Encounter DULY CONVERSTION DEPT Social History Tobacco Use Types Packs/Day Years Used Date Smoking Tobacco: Never Assessed Sex and Gender Information Value Date Recorded Sex Assigned at Female 08/10/2021 9:16 PM CDT Gender Identity Female 08/10/2021 9:16 PM CDT Sexual Orientation Straight 08/10/2021 9: 16 PM CDT documented as of this encounter Progress Notes * DMG CONVERSION PROVIDER - 01/04/2021 12:04 PM CDT Note Type: Physician progress note Patient: Loren Rashid Date: Jan 04, 2021 : 1960 Visit Provider: Nandini Shaffer M.D. Age: 60 Primary Physician: Karen Thomason M.D. Chief Complaint: Left breast DCIS, diagnosed January [...] on 01/17/2018 which was positive for DCIS, ER/IA positive. The patient underwent a lumpectomy on [...] visit on June 20, 2018. The patient is now here for follow up visit. Overall she is doing very well. She did undergo a leftsided mammogram in 12/2020 and it is unremarkable. The patient has not had a DEXA scan since 2019. Her medications were reviewed and as documented. a breast examination today was unremarkable. The patient has received her COVID vaccine. She does not want the flu vaccination. Current Medications: Albuterol Sulfate (108 (90 base) mcg/act) Aerosol Powder, Breath Activated Inhalation daily, Escitalopram Oxalate 1 Tablet (of 10 mg) Oral daily, Levothyroxine Sodium 1 (75 mcg) Tablet Oral daily, Singulair 1 (10 mg) Tablet Oral daily, Tamoxifen Citrate 1 (20 mg) Tablet Oral daily, Vitamin D Capsule Oral, Xanax 1 (.5 mg) Tablet Oral daily Vital Signs: Performed on Jan 04, 2021 11:48: Height - 61. in, Weight - 158.0 lbs (HIGH), BSA - 1.71 sq.m, BMI - 29.85, Temperature - 99.1 F (HIGH), Pulse - 67 /min, Respiration - 14 /min, BP - 130/75 mm(hg), Pain - 0, Fatigue - 4, [...] restrictions. (ECOG) Labs: Test performed on Jan 04, 2021 11:20: Albumin - 4.2, Alkaline Phosphatase - 63, Bilirubin, Total - 0.3, BUN - 19, Calcium - 9.5, Creatinine - 0.85, Cr Clearance (Est) - 77.6400, Glucose - 122.0, AST (SGOT) - 15, ALT (SGPT) - 12, Protein, Total - 6.8, Sodium - 141, Potassium - 4.3, Chloride - 105, CO2 - 27.9, WBC - 9.0, RBC - 4.92, HCT - 44.8, Hgb - 14.0, MCH - 28.5, MCHC - 31.3, MCV - 91.1,RDW - 14.3, Platelet Count - 284, Grans - 6.2, Lymph - 2.3, Mid - 0.5, Grans % - 69.3, Lymph % - 25.3, and Mid % - 5.4. 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 and RT 04/2018 and low dose tamoxifen covid vaccine 05/2020 Plan: 1. DCIS of the left breast status lumpectomy. She received radiation, completed in April of 2018. Has been on low dose tamoxifen, will continue the same. 2. To continue with tamoxifen for now. The patient is on low dose. She is tolerating it well. I would also recommend a bilateral mammogram in May 2021. 3. The patient has not had a DEXA scan for more than two years. Rationale was discussed. The patient is agreeable. We will schedule it in May 2021. She was recommended a screening colonoscopy. A referral was made. I do not believe the patient has had it. We discussed about it. NDB/at documented in this encounter Plan of Treatment Not on file documented as of this encounter Procedures Procedure Name Priority Date/Time Associated Diagnosis Comments CBC W AUTO DIFF Routine 01/04/2021 11:20 AM CDT COMPREHENSIVE METABOLIC PANEL Routine 01/04/2021 11:20 AM CDT documented in this encounter Results * (ABNORMAL) COMP METABOLIC PANEL (14) (01/04/2021 11:20 AM CDT) ALBUMIN, SERUM 4.2 3.5 - 5.7 g/dL 01/04/2021 11:20 AM CDT [facility] ALKALINE PHOSPHATASE 63 34 - 104 U/L 01/04/2021 11:20 AM CDT [facility] Total Bilirubin 0.3 0.3 - 1.0 mg/dL 01/04/2021 11:20 AM CDT [facility] BUN 19 7 - 25 mg/dL 01/04/2021 11:20 AM CDT [facility] CALCIUM 9.5 8.6 - 10.3 mg/dL 01/04/2021 11:20 AM CDT [facility] CREATININE 0.85 0.60 - 1.30 mg/dL 01/04/2021 11:20 AM CDT [facility] Creatinine Clearance (Est) 77.6400 75.0000 - 115.0000 mL/min 01/04/2021 11:20 AM CDT [facility] GLUCOSE, RANDOM (P) 122.0(H) 70.0 - 105.0 mg/dL 01/04/2021 11:20 AM CDT [facility] AST 15 13 - 39 U/L 01/04/2021 11:20 AM CDT [facility] ALT 12 7 - 52 U/L 01/04/2021 11:20 AM CDT [facility] TOTAL PROTEIN 6.8 6.4 - 8.9 g/dL 01/04/2021 11:20 AM CDT [facility] SODIUM 141 136 - 145 mEq/L 01/04/2021 11:20 AM CDT [facility] POTASSIUM, SERUM 4.3 3.5 - 5.1 mEq/L 01/04/2021 11:20 AM CDT [facility] CHLORIDE 105 98 - 107 mEq/L 01/04/2021 11:20 AM CDT [facility] CO2 27.9 21.0 - 31.0 mEq/L 01/04/2021 11:20 AM CDT [facility] 01/04/2021 11:2 0 AM CDT Narrative [facility] - 01/04/2021 12:34 PM CDT [address] # [id number] Read-only results ordered via the LCM/eLCM - see chart for additional updates or notes Nandini Shaffer MD LAB BLOOD ORDERABLES [facility] [address] [place] [address] * CBC W AUTO DIFF (01/04/2021 11:20 AM CDT) [facility] WBC 9.0 4.1 - 10.9 K/uL 01/04/2021 11:20 AM CDT [facility] RBC 4.92 4.20 - 5.40 M/uL 01/04/2021 11:20 AM CDT [facility] Hematocrit 44.8 37.0 - 47.0 % 01/04/2021 11:20 AM CDT [facility] HGB 14.0 12.0 - 16.0 g/dL 01/04/2021 11:20 AM CDT [facility] MCH 28.5 26.0 - 32.0 pg 01/04/2021 11:20 AM CDT [facility] MCHC 31.3 31.0 - 36.0 g/dL 01/04/2021 11:20 AM CDT [facility] MCV 91.1 80.0 - 97.0 fl 01/04/2021 11:20 AM CDT [facility] RED CELL DISTRIBUTION WIDTH 14.3 11.5 - 14.5 % 01/04/2021 11:20 AM CDT [facility] PLATELET COUNT 284 140 - 440 K/uL 01/04/2021 11:20 AM CDT [facility] GRANULOCYTES 6.2 2.0 - 7.8 K/uL 01/04/2021 11:20 AM CDT [facility] LYMPHOCYTES 2.3 0.6 - 4.1 K/uL 01/04/2021 11:20 AM CDT [facility] MIXED CELL ABSOLUTE 0.5 0.0 - 1.8 K/uL 01/04/2021 11:20 AM CDT [facility] NEUTROPHIL % 69.3 37.0 - 92.0 % 01/04/2021 11:20 AM CDT [facility] LYMPHOCYTE % 25.3 10.0 - 58.5 % 01/04/2021 11:20 AM CDT [facility] MIXED CELL % 5.4 0.1 - 24.0 % 01/04/2021 11:20 AM CDT [facility] 01/04/2021 11:2 0 AM CDT Narrative [facility] - 01/04/2021 11:47 AM CDT Testing performed at [address] # [id number] Read-only results ordered via the LCM/eLCM - see chart for additional updates or notes Nandini Shaffer MD LAB BLOOD ORDERABLES [facility] [address] [place] [address] documented in this encounter Visit Diagnoses Not on filedocumented in this encounter Additional Health Concerns Infection Onset Date Last Indicated Resolved Time R/O COVID19 04/25/2021 04/26/2021 04/27/2021 2:24 AM GOLF CART ATTENDANT R/O COVID19 05/16/2021 05/17/2021 05/18/2021 2:24 AM GOLF CART ATTENDANT documented as of this encounter Care Teams Bilingual School Psychologist Relationship Specialty Start Date End Date Pcp, Unknown PCP - General 05/19/21 documented as of this encounter
--- OUTSIDE RECORDS SUMMARY | 2024-06-21 21:06 | XMS_ITS | Encounter Summary ---
Author Organization [facility] Address [address] [place] [address] Care Team Providers Care Visitor Services Information Assistant Name Role Phone Pcp, Unknown Primary Care Provider Unavailabl e Encounter Details Date Type Department Care Team (Late st Contact Info) Description 08/06/2018 Duly Conversion Encounter DULY CONVERSTION DEPT Social [...] Sign Reading Time Taken Comments Blood Pressure 122/70 08/06/2018 10:25 AM CDT Pulse 80 08/06/2018 10:25 AM CDT Temperature 36.1 C (97 F) 08/06/2018 10:25 AM CDT Respiratory Rate 16 08/06/2018 10:25 AM CDT Oxygen Saturation - - Inhaled Oxygen Concentration - - Weight 73.9 kg (163 lb) 08/06/2018 10:25 AM CDT Height 154.9 cm (5' 1 ) 08/06/2018 10:25 AM CDT Body Mass Index 30.8 08/06/2018 10:25 AM CDT documented in this encounter Plan of Treatment Not on file documented as of this encounter Visit Diagnoses Not on filedocumented in this encounter Additional Health Concerns Infection Onset Date Last Indicated Resolved Time R/O COVID19 04/25/2021 04/26/2021 04/27/2021 2:24 AM BAND HEAD SAW OPERATOR R/O COVID19 05/16/2021 05/17/2021 05/18/2021 2:24 AM BAND HEAD SAW OPERATOR documented as of this encounter Care Teams Visitor Services Information Assistant Relationship Specialty Start Date End Date Pcp, Unknown PCP - General 05/19/21 documented as of this encounter
--- OUTSIDE RECORDS SUMMARY | 2024-06-21 21:06 | XMS_ITS | Encounter Summary ---
Author Organization [facility] Address [address] [place] [address] Care Team Providers Care Character Actor Name Role Phone Pcp, Unknown Primary Care Provider Unavailabl e Encounter Details Date Type Department Care Team (Late st Contact Info) Description 02/04/2019 Duly Conversion Encounter DULY CONVERSTION DEPT Social [...] Sign Reading Time Taken Comments Blood Pressure 142/68 02/04/2019 1:00 PM SALES PERFORMANCE MANAGER Pulse 74 02/04/2019 1:00 PM SALES PERFORMANCE MANAGER Temperature 36.6 C (97.9 F) 02/04/2019 1:00 PM SALES PERFORMANCE MANAGER Respiratory Rate 16 02/04/2019 1:00 PM SALES PERFORMANCE MANAGER Oxygen Saturation - - Inhaled Oxygen Concentration - - Weight 73.5 kg (162 lb) 02/04/2019 1:00 PM SALES PERFORMANCE MANAGER Height 154.9 cm (5' 1 ) 02/04/2019 1:00 PM SALES PERFORMANCE MANAGER Body Mass Index 30.61 02/04/2019 1:00 PM SALES PERFORMANCE MANAGER documented in this encounter Plan of Treatment Not on file documented as of this encounter Visit Diagnoses Not on filedocumented in this encounter Additional Health Concerns Infection Onset Date Last Indicated Resolved Time R/O COVID19 04/25/2021 04/26/2021 04/27/2021 2:24 AM SALES PERFORMANCE MANAGER R/O COVID19 05/16/2021 05/17/2021 05/18/2021 2:24 AM SALES PERFORMANCE MANAGER documented as of this encounter Care Teams Character Actor Relationship Specialty Start Date End Date Pcp, Unknown PCP - General 05/19/21 documented as of this encounter
--- OUTSIDE RECORDS SUMMARY | 2024-06-21 21:06 | XMS_ITS | Clinical Summary ---
Author Organization [facility] Address [address] [place] [address] Care Team Providers Care Sprinkling System Irrigator Name Role Phone Pcp, Unknown Primary Care Provider Unavailabl e Allergies No known active allergies Medications Medication Sig Dispensed Refills Start Date End Date Status Benadryl/Maalox/Lid ocaine 1:1:1 solution Take 5-10 mL by mouth TID AC&HS. [address]-40 120 mL 09/17/2018 Active Additional Information Patient not taking.Reported on 08/11/2021 ALPRAZolam 0.5 MG Oral Tab Take 0.5 mg by mouth nightly as needed. Active Vitamin D3, Cholecalciferol, 25 MCG (1000 UT) Oral Tab Take 1,000 Units by mouth daily. Active montelukast (SINGULAIR) 10 MG Oral Tab Take 10 mg by mouth nightly. Active levothyroxine 75 MCG Oral Tab Take 75 mcg by mouth. Active escitalopram 10 MG Oral Tab Take 10 mg by mouth daily. Active ALBUTEROL SULFATE IN Inhale into the lungs. 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 Cancer Staging:Pathologic stage from 04/13/2018: pTis (DCIS) - Signed by Nandini Shaffer MD on 08/11/2021 Family History Medical History Relation Comments Renal Disease Father Relation Status Comments Father Maternal Grandfather Maternal Grandmother Mother Paternal Grandfather Paternal Grandmother Social History Tobacco Use Types Packs/Day Years Used Date Smoking Tobacco: Former Smokeless Tobacco: Never Alcohol Use Standard Drinks/Week Comments Never 0 (1 standard drink = 0.6 oz pur e alcohol) Sex and Gender Information Value Date Recorded Sex Assigned at Female 08/10/2021 9:16 PM CDT Gender Identity Female 08/10/2021 9:16 PM CDT Sexual Orientation Straight 08/10/2021 9: 16 PM CDT Last Filed Vital Signs Vital Sign Reading Time Taken Comments Blood Pressure 143/73 08/11/2021 3:12 PM CDT Pulse 58 08/11/2021 3:12 PM CDT Temperature 36.7 C (98 F) 08/11/2021 3:12 PM CDT Respiratory Rate 13 08/11/2021 3:12 PM CDT Oxygen Saturation 97% 09/01/2020 8:33 AM CDT Inhaled Oxygen Concentration - - Weight 75.3 kg (166 lb) 08/11/2021 3:12 PM CDT Height 154.9 cm (5' 1 ) 08/11/2021 3:12 PM CDT Body Mass Index 31.37 08/11/2021 3:12 PM CDT Plan of Treatment Health Maintenance Due Date Last Done Comments Annual Physical 1960 Colonography 1960 Colonoscopy 1960 Colorectal Cancer Screening 1960 DNA-FIT (Cologuard) 1960 FIT/FOBT Colorectal Screening 1960 Flexible Sigmoidoscopy 1960 Annual Depression Screen 1970 Pneumococcal Vaccine: 50+ Years (1 of 1 - PCV) 009 Zoster Vaccines (1 of 2) 2008 Mammogram 08/02/2022 08/02/2021 Fall Risk Screening 2023 COVID-19 Vaccine (2023- season) 2023 Influenza Vaccine (#1) 2023 DEXA Scan Completed 08/02/2021 Procedures Procedure Name Priority Date/Time Associated Diagnosis Comments DEXA BONE DENSITY AXIAL (SSD=60611) 08/02/2021 9:33 AM CDT SATYA SCREEN MAMMOGRAM, DIGITAL (MXB=[id number]) 08/02/2021 8:51 AM CDT from Last 3 Months or Most Recently Relevant to Health Maintenance Results * DEXA BONE DENSITY AXIAL (VEL=68375) (08/02/2021 9:33 AM CDT) Anatomical Region Laterality Modality Other 08/02/2021 9:33 AM CDT Narrative 08/02/2021 9:[address] NAME: LOREN RASHID /AGE/SEX: 1960 - 61 - F PHYSICIAN: Nandini Shaffer M.D. ADMIT DATE: UNIT #: [id number] DIS DATE: LOC/RM/BED: D01MO- [facility] RAD/XR BONE DENSITY : [id number] ORDER DATE: 08/02/21 REPORT # : [id number] Exam: Bone Densitometry Indication: Osteoporosis rescreening. Comparison: [...] UNTIL SIGNED S: Signed 2 2 PS REPORT#:[id number] CC: Nandini Shaffer M.D. of 1 Procedure Note Generated, Interface - 08/02/[address] NAME: LOREN RASHID/AGE/SEX: 1960 - 61 - F PHYSICIAN: Nandini Shaffer M.D. ADMITDATE: UNIT #: [id number] DISDATE: /RM/BED: D01MO- [facility] RAD/XR BONE DENSITY : [id number] ORDER DATE: 08/02/21 REPORT # : [id number] Exam: Bone Densitometry Indication: Osteoporosis rescreening. Comparison: [...] UNTIL SIGNED S: Signed 2 2 PS REPORT#:[id number] CC: Nandini Shaffer M.D. of 1 Nandini Shaffer MD RIS DEXA * SATYA SCREEN MAMMOGRAM, DIGITAL (MWI=[id number]) (08/02/2021 8:51 AM CDT) Anatomical Region Laterality Modality Breast Bilateral Other 08/02/2021 8:51 AM CDT Narrative 08/03/2021 7:[address] NAME: LOREN RASHID /AGE/SEX: 1960 - 61 - F PHYSICIAN: Nandini Shaffer M.D. ADMIT DATE: UNIT #: [id number] DIS DATE: LOC/RM/BED: D01MO- [facility] DELMA/DIGITAL SCREEN DELMA W SATYA : [id number] ORDER DATE: 08/02/21 REPORT # : [id number] #[id number] - DIGITAL SCREEN DELMA W SATYA BILATERAL DIGITAL SCREENING MAMMOGRAM 3D/2D WITH CAD: 08/02/2021 CLINICAL: Routine screening. Patient has no complaints. Digital Tomosynthesis (3-D imaging) was performed. Comparison is made to exams dated: 12/27/2020, 04/27/2020, 10/24/2019, 04/09/2019, and 10/11/2018 [facility]. There are scattered fibroglandular elements in both breasts that could obscure a lesion on mammography. Current study was also evaluated with a Computer Aided Detection (CAD) system. There is a benign calcification left breast. There are post lumpectomy findings with stable architectural distortion left breast with probable associated oil cyts and partial calcification of the wall. No significant masses, calcifications, or other findings are seen in either breast. IMPRESSION: PROBABLY BENIGN A follow-up left mammogram in 6 months is recommended to demonstrate stability. Patient information entered into a reminder system with a target due date for the next mammogram. The patient has been or will be contacted. Erik Loredo M.D. tk/:08/02/2021 09:16:43 letter sent: Probably Benign Mammogram BI-RADS: 3 Probably benign DICTATED: Erik Loredo M.D. <Electronically signed by Erik Loredo M.D. in OV> Erik Loredo M.D. 08/02/[address] DRAFT UNTIL SIGNED S: Signed 5 PP REPORT#:[id number] CC: Karen Thomason M.D.; Nandini Shaffer M.D. of 2 Procedure Note Generated, Interface - 08/03/[address] NAME: LOREN RASHID/AGE/SEX: 1960 - 61 - F PHYSICIAN: Nandini Shaffer M.D. ADMITDATE: UNIT #: [id number] DISDATE: //BED: D01MO- DIAGNOSTIC IMAGING SERVICES DELMA/DIGITAL SCREEN DELMA W SATYA : [id number] ORDER DATE: 08/02/21 REPORT # : [id number] #[id number] - DIGITAL SCREEN DELMA W SATYA BILATERAL DIGITAL SCREENING MAMMOGRAM 3D/2D WITH CAD: 08/02/2021 CLINICAL: Routine screening. Patient has no complaints. Digital Tomosynthesis (3-D imaging) was performed. Comparison is made to exams dated: 12/27/2020, 04/27/2020, 10/24/2019,04/09/2019, and 10/11/2018 [facility]. There are scatteredfibroglandular elements in both breasts that could obscure a lesion on mammography. Current study was also evaluated with a Computer Aided Detection (CAD)system. There is a benign calcification left breast. There are post lumpectomyfindings with stable architectural distortion left breast with probable associated oil cyts andpartial calcification of the wall. No significant masses, calcifications, or other findings are seen ineither breast. IMPRESSION: PROBABLY BENIGN A follow-up left mammogram in 6 months is recommended to demonstratestability. Patient information entered into a reminder system with a target due date for thenext mammogram. The patient has been or will be contacted. Erik Loredo M.D. tk/:08/02/2021 09:16:43 letter sent: Probably Benign Mammogram BI-RADS: 3 Probably benign DICTATED: Erik Loredo M.D. <Electronically signed by Erik Loredo M.D. in OV> Erik Loredo M.D. 08/02/21 0916 DRAFT UNTIL SIGNED S: Signed 0851 0916 PP REPORT#:[id number] CC: Karen Thomason M.D.; Nandini Shaffer M.D. of 2 Nandini Shaffer MD RIS MAMMO from Last 3 Months or Most Recently Relevant to Health Maintenance Care Teams Sprinkling System Irrigator Relationship Specialty Start Date End Date Pcp, Unknown PCP - General 05/19/21
--- OUTSIDE RECORDS SUMMARY | 2024-06-21 21:06 | XMS_ITS | Referral Summary ---
Author Organization [facility] Address [address] [place] [address] Care Team Providers Care Piano Refinisher Name Role Phone Pcp, Unknown Primary Care Provider Unavailabl e Allergies No known active allergies Medications Benadryl/Maalox/ Lidocaine 1:1:1 solution Take 5-10 mL by mouth TID AC&HS. [address]- 98 120 mL 09/17/2018 Active Social History Tobacco Use Types Packs/Day Years Used Date Smoking Tobacco: Former Smokeless Tobacco: Never Alcohol Use Standard Drinks/Week Comments Never 0 (1 standard drink = 0.6 oz pur e alcohol) Comments Unknown Sex and Gender Information Value Date Recorded Sex Assigned at Not on file Legal Sex Female 1:20 PM CAKE ICER AND PACKER Gender Identity Not on file Sexual Orientation [...] 01/04/2021 11:48 AM CDT Plan of Treatment Not on file Insurance Vital Access Care Teams Piano Refinisher Relationship Specialty Start Date End Date Pcp, Unknown PCP - General 05/19/21
--- OUTSIDE RECORDS SUMMARY | 2024-06-21 21:06 | XMS_ITS | Encounter Summary ---
Author Organization [facility] Address [address] [place] [address] Care Team Providers Care School Leader Name Role Phone Pcp, Unknown Primary Care Provider Unavailabl e Encounter Details Date Type Department Care Team (Late st Contact Info) Description 04/22/2018 Duly Conversion Encounter DULY CONVERSTION DEPT Social [...] Sign Reading Time Taken Comments Blood Pressure 141/61 04/22/2018 8:08 AM LIFE SKILLS INSTRUCTOR Pulse 64 04/22/2018 8:08 AM LIFE SKILLS INSTRUCTOR Temperature 36.1 C (97 F) 04/22/2018 8:08 AM LIFE SKILLS INSTRUCTOR Respiratory Rate 16 04/22/2018 8:08 AM LIFE SKILLS INSTRUCTOR Oxygen Saturation 96% 04/22/2018 8:08 AM LIFE SKILLS INSTRUCTOR Inhaled Oxygen Concentration - - Weight 74.8 kg (165 lb) 04/22/2018 8:08 AM LIFE SKILLS INSTRUCTOR Height 154.9 cm (5' 1 ) 04/22/2018 8:08 AM LIFE SKILLS INSTRUCTOR Body Mass Index 31.18 04/22/2018 8:08 AM LIFE SKILLS INSTRUCTOR documented in this encounter Plan of Treatment Not on file documented as of this encounter Visit Diagnoses Not on filedocumented in this encounter Additional Health Concerns Infection Onset Date Last Indicated Resolved Time R/O COVID19 04/25/2021 04/26/2021 04/27/2021 2:24 AM LIFE SKILLS INSTRUCTOR R/O COVID19 05/16/2021 05/17/2021 05/18/2021 2:24 AM LIFE SKILLS INSTRUCTOR documented as of this encounter Care Teams School Leader Relationship Specialty Start Date End Date Pcp, Unknown PCP - General 05/19/21 documented as of this encounter
--- OUTSIDE RECORDS SUMMARY | 2024-06-21 21:06 | XMS_ITS | Encounter Summary ---
Author Organization [facility] Address [address] [place] [address] Care Team Providers Care Sewage Reticulation Drafting Officer Name Role Phone Pcp, Unknown Primary Care [...] 14 01/04/2021 11:48 AM CDT Oxygen Saturation - - Inhaled Oxygen Concentration - - Weight 71.7 kg (158 lb) 01/04/2021 11:48 AM CDT Height 154.9 cm (5' 1 ) 01/04/2021 11:48 AM CDT Body Mass Index 29.85 01/04/2021 11:48 AM CDT documented in this encounter Plan of Treatment Not on file documented as of this encounter Visit Diagnoses Not on filedocumented in this encounter Additional Health Concerns Infection Onset Date Last Indicated Resolved Time R/O COVID19 04/25/2021 04/26/2021 04/27/2021 2:24 AM ELECTRICIAN MARINE R/O COVID19 05/16/2021 05/17/2021 05/18/2021 2:24 AM ELECTRICIAN MARINE documented as of this encounter Care Teams Sewage Reticulation Drafting Officer Relationship Specialty Start Date End Date Pcp, Unknown PCP - General 05/19/21 documented as of this encounter
--- OUTSIDE RECORDS SUMMARY | 2024-06-21 21:06 | XMS_ITS | Clinical Summary ---
Author Organization [facility] Address [address] [place] [address] Care Team Providers Care Bicycle Subassembler Name Role Phone Chacha Shah MD Primary Care Provider + Source Comments [facility] is the largest [facility] health system based in [place]. We offer more than 150 locations around the [facility], in communities large and small, so health care access is convenient. With 19 [facility] and [facility] hospitals, over 25 long-term care and long-term facilities, dozens of physician offices and health centers, home care, hospice, behavioral health services and more. Currently six of our Hospitals are live on the [facility] system, they are: [facility] Medications Medication Sig Dispensed Refills Start Date End Date Status escitalopram (LEXAPRO) 20 MG tablet Take 1 tablet (20 mg total) by mouth daily. 04/02/2012 Active montelukast (SINGULAIR) 10 MG tablet Take 10 mg by mouth at bedtime. Active levothyroxine (SYNTHROID, LEVOTHROID) 50 MCG tablet Take 50 mcg by mouth once daily. Active Active Problems Problem Noted Date Diagnosed Date Postoperative state 02/24/2018 Ductal carcinoma in situ (DCIS) of left breast 1 04/10/2017 Disorder of bone and cartilage 02/08/2018 Overview: Replacing diagnosis that were inactivated with the regulatory upload on 12/10/20. Abnormal mammogram of left breast 02/08/2018 Fibrocystic breast disease (FCBD) 02/08/2018 Family History Medical History Relation Name Comments Kidney failure Natural Father Transient ischemic attack Natural Father Hepatitis Natural Mother Hypertension Natural Sister Breast cancer Paternal Grandmother Relation Name Status Comments Natural Father Alive Natural Mother Natural Sister Alive Paternal Grandmother Social History Tobacco Use Types Packs/Day Years Used Date Smoking Tobacco: Former Cigarettes 0.5 20 Smokeless Tobacco: Never Alcohol Use Standard Drinks/Week Comments No 0 (1 standard drink = 0.6 oz pur e alcohol) Sex and Gender Information Value Date Recorded Sex Assigned at Not on file Gender Identity Not on file Sexual Orientation Not on file Last Filed Vital Signs Vital Sign Reading Time Taken Comments Blood Pressure 130/72 03/08/2018 1:32 PM INTERNET SALES ASSOCIATE Pulse 58 03/08/2018 1:32 PM INTERNET SALES ASSOCIATE Temperature 36.8 C (98.3 F) 03/08/2018 1:32 PM INTERNET SALES ASSOCIATE Respiratory Rate 16 03/08/2018 1:32 PM INTERNET SALES ASSOCIATE Oxygen Saturation - - Inhaled Oxygen Concentration - - Weight 70.3 kg (155 lb) 03/08/2018 1:32 PM INTERNET SALES ASSOCIATE Height 154.9 cm (5' 1 ) 03/08/2018 1:32 PM INTERNET SALES ASSOCIATE Body Mass Index 29.29 03/08/2018 1:32 PM INTERNET SALES ASSOCIATE Plan of Treatment Health Maintenance Due Date Last Done Comments COLON CANCER SCREENING SIGMOIDOSCOPY 1960 COMPUTED TOMOGRAPHY (CT) COLONOGRAPHY 1960 HEPATITIS C SCREENING 1960 DEPRESSION SCREENING 1 YEAR 1970 DTAP,TDAP AND TD VACCINES (1 - Tdap) 1976 Lipid Panel 1978 COLON CANCER SCREENING COLONOSCOPY 2003 COLON CANCER SCREENING FIT-D NA (COLOGUARD) 2003 COLON CANCER SCREENING FIT/FOBT 2003 Colorectal Cancer Screening 2003 HERPES ZOSTER RECOMBINANT (SHINGRIX) VACCINATION (1 of 2) 2008 HERPES ZOSTER VACCINATION 2018 BREAST CANCER SCREENING 02/20/2020 02/19/2018 Pneumococcal 65+ Year (1 of 1 - PCV) 2023 Influenza Vaccine (#1) 2023 RSV Vaccine Patients 60 Year s and Older (1 - 1-dose 75+ series) 2033 OSTEOPOROSIS SCREENING Completed 02/08/2018 RSV Vaccine Pediatric Patien ts under 20 months Aged Out No longer eligible b ased on patient's age to complete this topic Procedures Procedure Name Priority Date/Time Associated Diagnosis Comments MTC PLACE LOCAL DEV [facility] 02/19/2018 7:40 AM INTERNET SALES ASSOCIATE MTC BONE DENSITY Routine 02/08/2018 4:03 PM INTERNET SALES ASSOCIATE Ductal carcinoma in situ (DCIS) of left breast Disorder of bone and cartilage, unspecified from Last 3 Months or Most Recently Relevant to Health Maintenance Results * Place Local DEV [facility] in [facility] (02/19/2018 7:40 AM INTERNET SALES ASSOCIATE) Anatomical Region Laterality Modality Other 02/19/2018 7:40 AM INTERNET SALES ASSOCIATE Narrative 02/20/2018 7:31 AM INTERNET SALES ASSOCIATE [facility] [address] NAME: LOREN RASHID /AGE/SEX: 1960 - 57 - F PHYSICIAN: Elida Yousif M.D. ADMIT DATE: UNIT #: [id number] DIS DATE: LOC/RM/BED: [id number] DELMA/PLACE LOCAL DEV [facility] IN [facility] : [id number] ORDER DATE: 02/19/18 REPORT # : [id number] #[id number] - PLACE LOCAL DEV [facility] DIGITAL MAMMOGRAPHY GUIDED NEEDLE LOCALIZATION LEFT BREAST: 02/19/2018 CLINICAL: Left Breast Cancer. Correlation is made to exams dated: 12/20/2017 [facility], 11/01/2017, and 11/01/2017 [facility]. A needle localization using digital mammography guidance was performed for the marker clip located in the left breast at 12 o'clock middle depth. This was described on the previous biopsy report. The skin was prepped in the usual manner. Local anesthetic was administered to the access site. A skin melanie was made in the breast. The localization was approached from the craniocaudal aspect. A needle was inserted adjacent to the marker under digital mammography guidance. Post placement imaging demonstrates the tip demarcates the boundaries adjacent to the marker. IMPRESSION: NEEDLE LOCALIZATION Needle localization for the marker clip in the left breast at 12 o'clock middle depth was successful. A specimen radiograph is recommended. Follow-up with ACR guidelines. Abhinav hemphill/lópezrad:02/19/2018 10:00:55 Gauge Checker: Tasia Borden RT(R)(M), [facility] DICTATED: Abhinav Hopkins D.O. <Electronically signed by Abhinav Hopkins D.O. in OV> Abhinav Hopkins D.O. 02/19/18 1000 DRAFT UNTIL SIGNED S: Signed 0740 1000 PP REPORT#:[id number] CC: Elida Yousif M.D.; Karen Thomason M.D. of 1 Procedure Note Abhinav Hopkins, - 02/20/[address] [facility] [address] NAME: LOREN RASHID/AGE/SEX: 1960 - 57 - F PHYSICIAN: Elida Yousif M.D. ADMITDATE: UNIT #: [id number] DISDATE: //BED: [id number]- [facility]IC [facility] DELMA/PLACE LOCAL DEV [facility] IN [facility] L : [id number] ORDER DATE: 02/19/18 REPORT # : [id number] #[id number] - PLACE LOCAL DEV [facility] DIGITAL MAMMOGRAPHY GUIDED NEEDLE LOCALIZATION LEFT BREAST: 02/19/2018 CLINICAL: Left Breast Cancer. Correlation is made to exams dated: 12/20/2017 [facility], 11/01/2017, and 11/01/2017 [facility]. A needle localization using digital mammography guidance was performed forthe marker clip located in the left breast at 12 o'clock middle depth. This was described on theprevious biopsy report. The skin was prepped in the usual manner. Local anesthetic wasadministered to the access site. A skin melanie was made in the breast. The localization was approached fromthe craniocaudal aspect. A needle was inserted adjacent to the marker under digital mammographyguidance. Post placement imaging demonstrates the tip demarcates the boundaries adjacent to themarker. IMPRESSION: NEEDLE LOCALIZATION Needle localization for the marker clip in the left breast at 12 o'clockmiddle depth was successful. A specimen radiograph is recommended. Follow-up with ACR guidelines. Abhinav hemphill/lópezrad:02/19/2018 10:00:55 Gauge Checker: Tasia Borden RT(R)(M), [facility] DICTATED: Abhinav Hopkins D.O. <Electronically signed by Abhinav Hopkins D.O. in OV> Abhinav Hopkins D.O. 02/19/18 1000 DRAFT UNTIL SIGNED S: Signed 0740 1000 PP REPORT#:[id number] CC: Elida Yousif M.D.; Karen Thomason M.D. of 1 Elida Yousif MD [facility] MAMMOGRAPHY OR DERABLES * RAD Bone density (02/08/2018 4:03 PM INTERNET SALES ASSOCIATE) Anatomical Region Laterality Modality Other 02/08/2018 4:03 PM INTERNET SALES ASSOCIATE Narrative 02/08/2018 4:11 PM INTERNET SALES ASSOCIATE [facility] [address] NAME: LOREN RASHID [place]y /AGE/SEX: 1960 - 57 - F PHYSICIAN: Elida Yousif M.D. ADMIT DATE: UNIT #: [id number] DIS DATE: LOC/RM/BED: [id number]- DIAGNOSTIC IMAGING SERVICES RAD/XR BONE DENSITY : [id number] ORDER DATE: 02/08/18 REPORT # : [id number] Bone Density Indication: Senile/idiopathic post-menopausal assessment for osteoporosis or osteopenia. Dual energy imaging of the lumbar spine and left femoral neck was performed. On the AP projection of the lumbar spine the bone mineral density was 0.759. There is a T-score of - 2.4. This would suggest osteopenia increased fracture risk. On the AP projection of the left femoral neck the bone mineral density was 0.858. There is a T-score of -0.7. This would suggest normal bone density no increased fracture risk. The FRAX index suggests a 10 year fracture risk of a major osteoporotic fracture of 6.4 % and a hip fracture of 0.2 %. Impression: Bone mineral density of the lumbar spine suggests osteopenia. Bone mineral density of the left femoral neck suggests normal bone density. DICTATED: Yannick Jones M.D. <Electronically signed by Yannick Jones M.D. in OV> Yannick Jones M.D. 02/08/18 1611 DRAFT UNTIL SIGNED S: Signed 1603 1603 PS REPORT#:[id number] CC: Elida Yousif M.D.; Karen Thomason M.D. of 1 Procedure Note Yannick Jones MD - 02/08/[address] [facility] [address] NAME: LOREN RASHIDOB/AGE/SEX: 1960 - 57 - F PHYSICIAN: Elida Yousif M.D. ADMITDATE: UNIT #: [id number] DISDATE: //BED: [id number]- DIAGNOSTIC IMAGING SERVICES RAD/XR BONE DENSITY : [id number] ORDER DATE: 02/08/18 REPORT # : [id number] Bone Density Indication: Senile/idiopathic post-menopausal assessment for osteoporosisor osteopenia. Dual energy imaging of the lumbar spine and left femoral neck wasperformed. On the AP projection of the lumbar spine the bone mineral density was0.759. There is a T-score of - 2.4. This would suggest osteopenia increased fracture risk. On the AP projection of the left femoral neck the bone mineral density was0.858. There is a T-score of -0.7. This would suggest normal bone density no increased fracturerisk. The FRAX index suggests a 10 year fracture risk of a major osteoporoticfracture of 6.4 % and a hip fracture of 0.2 %. Impression: Bone mineral density of the lumbar spine suggests osteopenia. Bone mineraldensity of the left femoral neck suggests normal bone density. DICTATED: Yannick Jones M.D. <Electronically signed by Yannick Jones M.D. in OV> Yannick Jones M.D. 02/08/18 1611 DRAFT UNTIL SIGNED S: Signed 1603 1603 PS REPORT#:[id number] CC: Elida Yousif M.D.; Karen Thomason M.D. of 1 Elida Yousif MD [facility] DIAGNOSTIC [facility] ORDERABLES from Last 3 Months or Most Recently Relevant to Health Maintenance Care Teams Bicycle Subassembler Relationship Specialty Start Date End Date Chacha Shah MD [address] [facility] [address] [place] [address] PCP - General 01/15/13
--- OUTSIDE RECORDS SUMMARY | 2024-06-21 21:06 | XMS_ITS | Encounter Summary ---
Author Organization [facility] Address [address] [place] [id number] Care Team Providers Care Technical Planner Name Role Phone Pcp, Unknown Primary Care [...] Progress Notes * Nandini Shaffer MD - 08/06/2018 12:02 PM CDT Note Type: Physician progress note Patient: LOREN RASHID Date: August 06, 2018 : 1960 Age: 58 Chief Complaint: [...] on 01/17/2018 which was positive for DCIS, ER/NC positive. The patient underwent a lumpectomy on [...] her last visit on June 20, 2018. She returns today in followup. Her breast is healed from radiation therapy but feels firmer. She also reports she doesn't feel like her bra supports her breast. She is feeling much improved on Tamoxifen but she is taking it every other day instead of 1/2 tablet daily as she does not have a pill cutter. She gets occasional hot flashes,. however, they are manageable. Her leg pain has improved but it remains hard for her to go up stairs. She has no vaginal bleeding. She reports Dr. Handley told her not to get her mammogram until September or October. Orders were placed previously. Current Medications: Tamoxifen Citrate 0.5 (10 mg) Tablet Oral daily for 30 days, Albuterol Sulfate(108 (90 base) mcg/act) Aerosol Powder, Breath Activated Inhalation daily, Levothyroxine Sodium 1 (50 mcg) Tablet Oral daily, Singulair 1 (10 mg) Tablet Oral daily, Tamoxifen Citrate 1 (10 mg) TabletOral q 48 hours Vital Signs: Performed on August 06, 2018 10:25: Height - 61. in, Weight - 163 lbs, BSA - 1.73 sq.m, BMI - 30.8 (HIGH), Temperature - 97 F (LOW), Pulse - 80 /min, Respiration - 16 /min, BP - 122/70 mm(hg), Pain - 0, Fatigue - 6, and Fall Risk - no. Review of Systems: Constitutional Normal - No fevers, chills, night sweats, feels tired, occasionalhot flashes, HEENT Normal - No symptoms, Hematologic/Lymphatic Normal - No easy bruising or bleeding. No enlarged lymph nodes, Respiratory Normal - No GUERRERO, SOB, cough or hemoptysis, Cardiovascular Nor mal - No chest pain, orthopnea or PND, Gastrointestinal Normal - No nausea, vomiting, diarrhea or constipation. No melena or BRBPR. No hematemesis, Genitourinary (F) Normal - No hematuria, hesitancy,incontinence, vaginal bleeding, discharge or other problems with urination. Normal sexual function, Musculoskeletal Normal - No joint pain or swelling. No muscle aches, Integumentary (w/breast) Normal - firmness to breast, skin healed, Neurologic Normal - No tingling or numbness. No focal weakness,Psychiatric Normal - No insomnia. Physical Exam: General Normal - Alert and oriented, HEENT Normal - Normocephalic, pink conjunctivae, anicteric sclerae, Neck Normal - No adenopathy, Hematologic/Lymphatic/Skin Normal - No petechiae, purpura or rash, Respiratory Normal - Lungs are clear to auscultation without rhonchi or wheezing, Cardiovascular Normal - Regular rate and rhythm of heart without murmurs or rubs, Breasts Abnormal - No lesions or masses palpated either breast, left breast slightly firmer and darker. Well healed scar to left breast No axillary lymphadenopathy, no nipple inversion or discharge, Abdomen Normal - No hepatosplenomegaly. Non-distended. Non-tender, Musculoskeletal Normal - No tenderness or swelling, normal range of motion without obvious weakness, Extremities Normal - No visible deformities, no cyanosis, clubbing or edema. Pulses 4+ and equal bilaterally, Neurologic Normal - No sensory or motor def icits. Normal cranial nerves. Performance status: 0 - Fully active, able to carry on all predisease activities without restrictions. (ECOG) Labs: Test performed on August 06, 2018 10:19: WBC - 6.3, RBC - 4.77, HCT - 43.2, Hgb - 13.6, MCH - 28.5, MCHC - 31.5, MCV - 90.6, RDW - 14.7, Platelet Count - 310, Grans - 4.5, Lymph - 1.4, Mid - 0.4, Grans % - 71.5, Lymph % - 21.6, and Mid % - 6.9. Impression: DCIS stage 0 ERPR+, status post [...] will plan on repeating a left mammogram at the end of September or beginning of October, and if normal will then return to yearly mammograms. We had previously discussed her about the SALINAS-01 trial using reduced dose of tamoxifen for patient with DCIS. She is tolerating this better and taking one tablet every other day as she does not have anything to cut them in half. She is asking for a refill. She understood that her overall prognosis is excellent and her risk of recurrence is quite low. Tamoxifen or an AI decreases the risk of recurrence and more so it also prevents new breast cancer in the ipsilateral breast. Her risk of recurrence is pretty low. If she is unable to tolerate full dose tamoxifen because of the toxicity she will still have a very good response. Weight gain. The patient was also a little frustrated about it. She thinks this is because she has stopped smmoking. Her weight is stable from her visit in October, but she remains somewhat unhappy that she cannot lose. We again discussed portion control and exercise. documented in this encounter Plan of Treatment Not on file documented as of this encounter Procedures Procedure Name Priority Date/Time Associated Diagnosis Comments CBC W AUTO DIFF Routine 08/06/2018 10:19 AM CDT COMPREHENSIVE METABOLIC PANEL Routine 08/06/2018 10:19 AM CDT documented in this encounter Results * (ABNORMAL) COMP METABOLIC PANEL (14) (08/06/2018 10:19 AM CDT) ALBUMIN, SERUM 4.2 3.5 - 5.7 g/dL 08/06/2018 10:19 AM CDT [facility] ALKALINE PHOSPHATASE 94 34 - 104 U/L 08/06/2018 10:19 AM CDT [facility] Total Bilirubin 0.4 0.3 - 1.0 mg/dL 08/06/2018 10:19 AM CDT [facility] BUN 16 7 - 25 mg/dL 08/06/2018 10:19 AM CDT [facility] CALCIUM 9.2 8.6 - 10.3 mg/dL 08/06/2018 10:19 AM CDT [facility] CREATININE 0.79 0.60 - 1.30 mg/dL 08/06/2018 10:19 AM CDT [facility] Creatinine Clearance (Est) 88.3900 75.0000 - 115.0000 mL/min 08/06/2018 10:19 AM CDT [facility] GLUCOSE, RANDOM (P) 96.0 70.0 - 105.0 mg/dL 08/06/2018 10:19 AM CDT [facility] AST 11(L) 13 - 39 U/L 08/06/2018 10:19 AM CDT [facility] ALT 9 7 - 52 U/L 08/06/2018 10:19 AM CDT [facility] TOTAL PROTEIN 6.7 6.4 - 8.9 g/dL 08/06/2018 10:19 AM CDT [facility] SODIUM 141 136 - 145 mEq/L 08/06/2018 10:19 AM CDT [facility] POTASSIUM, SERUM 4.6 3.5 - 5.1 mEq/L 08/06/2018 10:19 AM CDT [facility] CHLORIDE 106 98 - 107 mEq/L 08/06/2018 10:19 AM CDT [facility] CO2 28.2 21.0 - 31.0 mEq/L 08/06/2018 10:19 AM CDT [facility] 08/06/2018 10:1 9 AM CDT Narrative [facility] - 08/06/2018 12:36 PM CDT Testing performed at [facility]- [address] [place] [address] CLIA # [id number] Read-only results ordered via the LCM/eLCM - see chart for additional updates or notes Nandini Shaffer MD LAB BLOOD ORDERABLES Performing Organization Address [facility]/State/ZIP Co de Phone Number [facility] [address] [place] [address] * (ABNORMAL) CBC W AUTO DIFF (08/06/2018 10:19 AM CDT) [facility] WBC 6.3 4.1 - 10.9 K/uL 08/06/2018 10:19 AM CDT [facility] RBC 4.77 4.20 - 5.40 M/uL 08/06/2018 10:19 AM CDT [facility] Hematocrit 43.2 37.0 - 47.0 % 08/06/2018 10:19 AM CDT [facility] HGB 13.6 12.0 - 16.0 g/dL 08/06/2018 10:19 AM CDT [facility] MCH 28.5 26.0 - 32.0 pg 08/06/2018 10:19 AM CDT [facility] MCHC 31.5 31.0 - 36.0 g/dL 08/06/2018 10:19 AM CDT [facility] MCV 90.6 80.0 - 97.0 fl 08/06/2018 10:19 AM CDT [facility] RED CELL DISTRIBUTION WIDTH 14.7(H) 11.5 - 14.5 % 08/06/2018 10:19 AM CDT [facility] PLATELET COUNT 310 140 - 440 K/uL 08/06/2018 10:19 AM CDT [facility] GRANULOCYTES 4.5 2.0 - 7.8 K/uL 08/06/2018 10:19 AM CDT [facility] LYMPHOCYTES 1.4 0.6 - 4.1 K/uL 08/06/2018 10:19 AM CDT [facility] MIXED CELL ABSOLUTE 0.4 0.0 - 1.8 K/uL 08/06/2018 10:19 AM CDT [facility] NEUTROPHIL % 71.5 37.0 - 92.0 % 08/06/2018 10:19 AM CDT [facility] LYMPHOCYTE % 21.6 10.0 - 58.5 % 08/06/2018 10:19 AM CDT [facility] MIXED CELL % 6.9 0.1 - 24.0 % 08/06/2018 10:19 AM CDT [facility] 08/06/2018 10:1 9 AM CDT Narrative [facility] - 08/06/2018 10:27 AM CDT Testing performed at [facility]- [address] [place] [address] CLIA # [id number] Read-only results ordered via the LCM/eLCM - see chart for additional updates or notes Nandini Shaffer MD LAB BLOOD ORDERABLES [facility] [address] [place] [address] documented in this encounter Visit Diagnoses Not on filedocumented in this encounter Additional Health Concerns Infection Onset Date Last Indicated Resolved Time R/O COVID19 04/25/2021 04/26/2021 04/27/2021 2:24 AM GRADER MARKER R/O COVID19 05/16/2021 05/17/2021 05/18/2021 2:24 AM GRADER MARKER documented as of this encounter Care Teams Technical Planner Relationship Specialty Start Date End Date Pcp, Unknown PCP - General 05/19/21 documented as of this encounter
--- OUTSIDE RECORDS SUMMARY | 2024-06-21 21:06 | XMS_ITS | Encounter Summary ---
Author Organization [facility] and Care Address [address] [place] [id number] Care Team Providers Care Physical Metallurgist Name Role Phone Pcp, Unknown Primary Care [...] Progress Notes * Nandini Shaffer MD - 02/04/2019 2:06 PM CST Note Type: Physician progress note Patient: LOREN RASHID Date: Feb 04, 2019 : 1960 Age: 58 Primary Care Physician: [...] on 01/17/2018 which was positive for DCIS, ER/TN positive. The patient underwent a lumpectomy on [...] colon carcinoma. Current Medications: Tamoxifen Citrate 1 (20 mg) Tablet Oral daily for 90 days, Albuterol Sulfate (108 (90 base) mcg/act) Aerosol Powder, Breath Activated Inhalation daily, Levothyroxine Sodium 1 (50mcg) Tablet Oral daily, Singulair 1 (10 mg) Tablet Oral daily, Tamoxifen Citrate 1 (10 mg) Tablet Oral q 48 hours Vital Signs: Performed on Feb 04, 2019 13:00: Height - 61. in, Weight - 162 lbs (HIGH), BSA - 1.73 sq.m, BMI - 30.61 (HIGH), Temperature - 97.9 F (LOW), Pulse - 74 /min, Respiration - 16 /min, BP - 142/68 mm(hg) (HIGH), Pain - 0, Fatigue - 0, and [...] seroma, Abdomen Normal - No hepatosplenomegaly. Non-distended. Non-tender, Musculoskeletal Normal - No weakness or tenderness, ExtremitiesNormal - No cyanosis, clubbing or edema, Neurologic Normal - No sensory or motor deficits. Normal cranial nerves. Performance status: 0 - Fully active, able to carry on all predisease activities without restrictions. (ECOG) Labs: Test performed on Feb 04, 2019 12:58: Albumin - 4.1, Alkaline Phosphatase - 93, Bilirubin, Total - 0.3, BUN - 23, Calcium - 9.3, Creatinine - 0.85, Cr Clearance (Est) - 81.6500, Glucose - 97.0,AST (SGOT) - 15, ALT (SGPT) - 13, Protein, Total - 6.4, Sodium - 140, Potassium - 4.7, Chloride - 105, CO2 - 28.2, WBC - 6.5, RBC - 4.74, HCT - 41.7, Hgb - 13.3, MCH - 28.1, MCHC - 31.9, MCV - 88.0, RDW - 14.3, Platelet Count - 317, Grans - 4.7, Lymph - 1.4, Mid - 0.4, Grans % - 72.4, Lymph % - 21.2, and Mid % - 6.4. Impression: DCIS stage 0 ER/TN+, status post lumpectomy 02/19/18. Plan: 1. DCIS of the left breast, status post lumpectomy. I discussed the pathology findings with the patient. The patient understood that there was no evidence of residual disease, margins are clean. Her prognosis is excellent. We discussed about other options available to her. She completed radiation today, 04/23 2. The patient is to continue with the tamoxifen 10 mg daily or 20 mg every other day. She is tolerating that better. Since her risk of recurrence is low, I think this would be adequate. Would recommend a bilateral mammogram as her last one was in October 2017. 3. Weight gain and exercise were again discussed. 4. Hot flashes. They are not too bothersome. The patient is able to cope with them. We discussed about other options that could be provided to her if they got any worse. 5. She does not want the flu vaccination. She did take the pneumococcal vaccine in 2019. 6. I discussed with her about the utility of screening colonoscopy. The patient does not want it. NDB/gm D NATURALIST documented in this encounter Plan of Treatment Not on file documented as of this encounter Procedures Procedure Name Priority Date/Time Associated Diagnosis Comments CBC W AUTO DIFF Routine 02/04/2019 12:58 PM FIELD NATURALIST COMPREHENSIVE METABOLIC PANEL Routine 02/04/2019 12:58 PM FIELD NATURALIST documented in this encounter Results * CBC W AUTO DIFF (02/04/2019 12:58 PM FIELD NATURALIST) WBC 6.5 4.1 - 10.9 K/uL 02/04/2019 12:58 PM FIELD NATURALIST [facility] RBC 4.74 4.20 - 5.40 M/uL 02/04/2019 12:58 PM FIELD NATURALIST [facility] Hematocrit 41.7 37.0 - 47.0 % 02/04/2019 12:58 PM FIELD NATURALIST [facility] HGB 13.3 12.0 - 16.0 g/dL 02/04/2019 12:58 PM FIELD NATURALIST [facility] MCH 28.1 26.0 - 32.0 pg 02/04/2019 12:58 PM FIELD NATURALIST [facility] MCHC 31.9 31.0 - 36.0 g/dL 02/04/2019 12:58 PM FIELD NATURALIST [facility] MCV 88.0 80.0 - 97.0 fl 02/04/2019 12:58 PM FIELD NATURALIST [facility] RED CELL DISTRIBUTION WIDTH 14.3 11.5 - 14.5 % 02/04/2019 12:58 PM FIELD NATURALIST [facility] PLATELET COUNT 317 140 - 440 K/uL 02/04/2019 12:58 PM FIELD NATURALIST [facility] GRANULOCYTES 4.7 2.0 - 7.8 K/uL 02/04/2019 12:58 PM FIELD NATURALIST [facility] LYMPHOCYTES 1.4 0.6 - 4.1 K/uL 02/04/2019 12:58 PM FIELD NATURALIST [facility] MIXED CELL ABSOLUTE 0.4 0.0 - 1.8 K/uL 02/04/2019 12:58 PM FIELD NATURALIST [facility] NEUTROPHIL % 72.4 37.0 - 92.0 % 02/04/2019 12:58 PM FIELD NATURALIST [facility] LYMPHOCYTE % 21.2 10.0 - 58.5 % 02/04/2019 12:58 PM FIELD NATURALIST [facility] MIXED CELL % 6.4 0.1 - 24.0 % 02/04/2019 12:58 PM FIELD NATURALIST [facility] 02/04/2019 12:5 8 PM FIELD NATURALIST Narrative [facility] - 02/04/2019 1:03 PM FIELD NATURALIST Testing performed at [facility]- [address] [place], [place] [address]IA # [id number] Read-only results ordered via the LCM/eLCM - see chart for additional updates or notes Nandini Shaffer MD LAB BLOOD ORDERABLES Performing Organization Address [facility]/State/[facility] Co de Phone Number [facility] [address] [place] [address] * COMP METABOLIC PANEL (14) (02/04/2019 12:58 PM FIELD NATURALIST) [facility] ALBUMIN, SERUM 4.1 3.5 - 5.7 g/dL 02/04/2019 12:58 PM FIELD NATURALIST [facility] ALKALINE PHOSPHATASE 93 34 - 104 U/L 02/04/2019 12:58 PM FIELD NATURALIST [facility] Total Bilirubin 0.3 0.3 - 1.0 mg/dL 02/04/2019 12:58 PM FIELD NATURALIST [facility] BUN 23 7 - 25 mg/dL 02/04/2019 12:58 PM FIELD NATURALIST [facility] CALCIUM 9.3 8.6 - 10.3 mg/dL 02/04/2019 12:58 PM FIELD NATURALIST [facility] CREATININE 0.85 0.60 - 1.30 mg/dL 02/04/2019 12:58 PM FIELD NATURALIST [facility] Creatinine Clearance (Est) 81.6500 75.0000 - 115.0000 mL/min 02/04/2019 12:58 PM FIELD NATURALIST [facility] GLUCOSE, RANDOM (P) 97.0 70.0 - 105.0 mg/dL 02/04/2019 12:58 PM FIELD NATURALIST [facility] AST 15 13 - 39 U/L 02/04/2019 12:58 PM FIELD NATURALIST [facility] ALT 13 7 - 52 U/L 02/04/2019 12:58 PM FIELD NATURALIST [facility] TOTAL PROTEIN 6.4 6.4 - 8.9 g/dL 02/04/2019 12:58 PM FIELD NATURALIST [facility] SODIUM 140 136 - 145 mEq/L 02/04/2019 12:58 PM FIELD NATURALIST [facility] POTASSIUM, SERUM 4.7 3.5 - 5.1 mEq/L 02/04/2019 12:58 PM FIELD NATURALIST [facility] CHLORIDE 105 98 - 107 mEq/L 02/04/2019 12:58 PM FIELD NATURALIST [facility] CO2 28.2 21.0 - 31.0 mEq/L 02/04/2019 12:58 PM FIELD NATURALIST [facility] 02/04/2019 12:5 8 PM FIELD NATURALIST Narrative [facility] - 02/04/2019 2:02 PM FIELD NATURALIST Testing performed at [facility]- [address] [place] [address] CLIA # [id number] Read-only results ordered via the LCM/eLCM - see chart for additional updates or notes Nandini Shaffer MD LAB BLOOD ORDERABLES Performing Organization Address City/State/[facility] Co de Phone Number [facility] [address] [place] [address] documented in this encounter Visit Diagnoses Not on filedocumented in this encounter Additional Health Concerns Infection Onset Date Last Indicated Resolved Time R/O COVID19 04/25/2021 04/26/2021 04/27/2021 2:24 AM FIELD NATURALIST R/O COVID19 05/16/2021 05/17/2021 05/18/2021 2:24 AM FIELD NATURALIST documented as of this encounter Care Teams Physical Metallurgist Relationship Specialty Start Date End Date Pcp, Unknown PCP - General 05/19/21 documented as of this encounter
--- NOTE | 2024-06-21 21:38 | ED_ITS ---
HPI - Extremity Injury (Upper) General Chief Complaint: Extremity Injury, Upper Stated Complaint: fall Time Seen by Provider: 06/21/24 20:33 Source: patient Mode of arrival: ambulatory Limitations: no limitations History of Present Illness HPI narrative: Patient is a 64-year-old female who presents the ED with report of left hand injury. Patient reports she tripped over ache her while walking earlier today and attempted to catch herself with her left hand. Sustained injury to her left dorsal hand with bruising/swelling. Complains of pain. Denies any other injury. Denies head injury or LOC. Denies numbness. Related Data Allergies Allergy/AdvReac Type Severity Reaction Status Date / Time amoxicillin Allergy Mild Hives Verified 06/21/24 20:24 Review of Systems Review of Systems: All systems reviewed & are unremarkable except as noted in HPI. All systems reviewed & are unremarkable except as noted in HPI and below Exam Narrative: GENERAL: Well appearing, well-nourished, non-toxic, in no acute distress. HEAD: Normocephalic, atraumatic. RESPIRATORY: Airway patent, respirations nonlabored. CARDIOVASCULAR: Regular rate and rhythm. Radial pulses strong and easily palpable. MUSCULOSKELETAL: Moves all extremities. No gross deformities. Mild swelling and bruising to lateral dorsal R hand with mild focal TTP. Sensation intact. Capillary refill intact. No snuffbox tenderness. No tenderness over distal radius or ulna. SKIN: Warm, dry, normal color. NEURO: A&O X3. Speech clear. PSYCHIATRIC: Appropriate mood and affect. Normal interaction. Course Vital Signs Vital signs: Vital Signs Temperature 97.8 F 06/21/24 20:21 Pulse Rate 75 06/21/24 20:21 Respiratory Rate 20 06/21/24 20:21 Blood Pressure 151/68 H 06/21/24 20:21 Pulse Oximetry 95 06/21/24 20:21 Oxygen Delivery Room Air 06/21/24 20:21 Temperature 97.8 F 06/21/24 20:21 Pulse Rate 75 06/21/24 20:21 Respiratory Rate 20 06/21/24 20:21 Blood Pressure 151/68 H 06/21/24 20:21 Pulse Oximetry 95 06/21/24 20:21 Oxygen Delivery Room Air 06/21/24 20:21 MDM - Extremity Injury (Upper) MDM Narrative Medical decision making narrative: Patient?s injury is consistent with musculoskeletal etiology. No signs of neurologic or vascular compromise on physical examination. Compartments are soft without signs of compartment syndrome. XR without evidence of acute fracture. Does show postoperative changes. Patient has had previous Anchovy procedure in the past. Pain is consistent with hand sprain/contusion. Patient is felt to be stable for discharge home and further outpatient management and treatment. Given JUAN C bandage. Discussed rice therapy, return precautions. Patient discharged in stable condition. Medical Records Attestation: I reviewed the patient's medical records. Imaging Data Attestation: I personally reviewed and interpreted this imaging study as follows: Radiologist's impression: ITS Impressions Hand X-Ray 06/21/24 21:32 IMPRESSION: No acute osseous abnormality left hand. Postoperative changes in the trapezium bone. Discharge Plan Discharge Clinical Impression: Sprain of left hand Qualifiers: Encounter type: initial encounter Qualified Code(s): S63.92XA - Sprain of unspecified part of left wrist and hand, initial encounter Contusion of left hand Qualifiers: Encounter type: initial encounter Qualified Code(s): S60.222A - Contusion of left hand, initial encounter Patient Disposition: Home Condition: Stable Instructions: Antibiotic Form, Hand Sprain (ED), P.R.I.C.E. Treatment (ED) Additional Instructions: Your x-ray did not show any evidence of fractures. Utilize JUAN C bandage for co mpression and support. Recommend frequent icing to hand, Tylenol/Ibuprofen as needed for pain. Follow-up with your hand surgeon for further evaluation if needed. Return to an ED if you experience worsening or severe pain, recurrent injury, numbness, or any other symptoms of concern. Patient Language: Luxembourgish Follow-up/Referrals: UNKNOWN,DOCTOR [Primary Care Provider] - Time of Disposition: 21:41
[2024-06-21] MEDS: KETOROLAC 30 MG/ML VIAL (*BKC) IM (21:52)
== END 2024-06-21 21:58 | disposition home or self-care (01) ==
PROVIDERS: Emergency Provider Physician Assistant
DX: S63.92XA Sprain of unspecified part of left wrist and hand, initial encounter (principal); S60.222A Contusion of left hand, initial encounter; W18.09XA Striking against other object with subsequent fall, initial encounter
CPT/HCPCS: 73120; 96372; 99283; J1885